=== PATIENT | female | born 1950 | race Caucasian/White ===

== ENCOUNTER 2019-07-24 09:00 | Outpatient (CLI) | payer MEDICARE, SELFPAY ==
--- NOTE | ~2019-07-24 | MMUS_ITS ---
EXAMINATION: MM diagnostic bruno LT w gentry, US breast LT limited HISTORY: Six-month follow-up for probably benign left breast mass TECHNIQUE: Craniocaudal, mediolateral, and mediolateral oblique 3-D tomosynthesis images of the left breast were performed and synthetic 2-D images were generated. Spot compression views of the left terry ast are also obtained. CAD analysis was submitted and interpreted. High resolution limited left breas t ultrasound was performed. COMPARISON: 01/12/2019, 12/19/2018, 12/13/2017, 12/08/2016 BREAST PARENCHYMAL COMPOSITION: There are scattered areas of fibroglandular density. FINDINGS: MAMMOGRAPHIC FINDINGS: There is a stable 5 mm round, obscured, equal density mass in the middle third of the breast at the 9 :00 location 4 cm from the nipple, consistent with a cyst. No associated calcification or architectur al distortion are identified. ULTRASOUND: Again seen is a mildly irregular area in the subareolar aspect of the breast without discrete mass, p osterior acoustic shadowing, or internal vascularity. This has a stable appearance when compared to p rior ultrasound and no mammographic correlate is IMPRESSION: 1. Probably benign findings in the subareolar aspect of the left breast. 2. Recommend 6 month follow-up left diagnostic mammogram and ultrasound. BI-RADS category 3, probably benign findings. Reviewed, dictated and finalized at location A. MING DEPARTMENT BLOCKER IMPRESSION: 1. Probably benign findings in the subareolar aspect of the left breast. 2. Recommend 6 month follow-up left diagnostic mammogram and ultrasound. BI-RADS category 3, probably benign findings.
== END 2019-07-24 09:01 | disposition home or self-care (01) ==
PROVIDERS: PCP Family Medicine; Visit Provider Family Medicine
DX: R92.8 Other abnormal and inconclusive findings on diagnostic imaging of breast (principal)
CPT/HCPCS: 76642; 77061; 77065; G0279

== ENCOUNTER 2020-01-22 09:05 | Outpatient (CLI) | payer MEDICARE, SELFPAY ==
--- NOTE | ~2020-01-22 | MMUS_ITS ---
EXAMINATION: MM diagnostic bruno LT w gentry, US breast LT limited HISTORY: Probably benign prior imaging findings in subareolar left breast TECHNIQUE: 3-D tomosynthesis images of the left breast were performed and synthetic 2-D images were g enerated. CAD analysis was submitted and interpreted. High resolution subareolar left breast ultrasou nd was performed. COMPARISON: 07/24/2019 diagnostic left digital mammogram and limited left breast ultrasound 01/12/2019 diagnostic bilateral digital mammogram and bilateral breast ultrasound 12/19/2018 bilateral digital screening mammogram 12/13/2017, 12/08/2016 bilateral digital screening mammogram examinations BREAST PARENCHYMAL COMPOSITION: There are scattered areas of fibroglandular density. FINDINGS: MAMMOGRAPHIC FINDINGS: No suspicious mass, architectural distortion, malignant calcification, skin thickening or retraction is evident. ULTRASOUND: There is an approximately 5.0 x 6.1 x 4.3 mm oval hypoechoic solid lesion with fatty hilus, likely a benign appearing left subareolar lymph node. There is stable irregular hypoechogenicity in the subare olar area without discrete mass or significant change compared to 07/24/2019. IMPRESSION: 1. Probably benign findings 2. Follow-up diagnostic left mammogram and left subareolar ultrasound examination in 6 months are rec ommended BI-RADS category 3, probably benign findings. Reviewed, dictated and finalized at location A. IMPRESSION: 1. Probably benign findings 2. Follow-up diagnostic left mammogram and left subareolar ultrasound examinati on in 6 months are recommended BI-RADS category 3, probably benign findings.
== END 2020-01-22 09:06 | disposition home or self-care (01) ==
PROVIDERS: PCP Family Medicine; Visit Provider Family Medicine
DX: R92.8 Other abnormal and inconclusive findings on diagnostic imaging of breast (principal)
CPT/HCPCS: 76642; 77061; 77065; G0279

== ENCOUNTER 2020-07-24 08:47 | Outpatient (CLI) | payer MEDICARE, SELFPAY ==
--- NOTE | ~2020-07-24 | MMUS_ITS ---
EXAMINATION: MM diagnostic bruno BI w gentry, US breast RT complete, US breast LT complete HISTORY: Follow-up breast mass TECHNIQUE: Additional 3-D tomosynthesis images of the breasts were performed and synthetic 2-D images were generated. CAD analysis was submitted and interpreted. High resolution bilateral complete breas t ultrasound was performed. COMPARISON: Comparison to multiple prior studies sequentially, with oldest reviewed study dated 12/13. BREAST PARENCHYMAL COMPOSITION: Breast composed of scattered areas of fibroglandular density. FINDINGS: MAMMOGRAPHIC FINDINGS: There is a 13 mm mass in the upper outer quadrant of the right breast, anterior third. There are smal ler nodules central aspect of the right breast measuring 2-3 mm, best seen on CC tomographic image 35 . There are scattered small 3-4 mm nodules in the central aspect of the left breast, CC tomographic i mage 37 and MLO tomographic image 38.. ULTRASOUND: Right breast ultrasound: At 5:00, 2 cm from the nipple is an irregular shaped hypoechoic mass measuri ng 7 mm with some angular margins. No significant posterior features or internal vascularity. At 11:0 0 near the nipple there is a 1.5 cm cyst responding to the dominant mass seen on mammography. Adjacen t to this area is a complex hypoechoic mass with angular margins and posterior shadowing with ill-def ined margins. Left breast ultrasound: At 1:00, 2 cm from the nipple, there is a 3 mm cyst. At 10:00, 2 cm from the nipple, there is a 3 mm cyst. In the subareolar location there is an irregular shaped hypoechoic mass measuring 5 mm with posterior shadowing. No internal vascularity. IMPRESSION: 1. Irregular shaped hypoechoic masses in the subareolar location of both breasts. 2. Bilateral ultrasound-guided breast biopsies recommended. BI-RADS category 4, suspicious findings. Reviewed, dictated and finalized at location A. NCE INTELLIGENCE ANALYST IMPRESSION: 1. Irregular shaped hypoechoic masses in the subareolar location of both breast s. 2. Bilateral ultrasound-guided breast biopsies recommended. BI-RADS category 4, suspicious findings. IMPRESSION: 1. Irregular shaped hypoechoic masses in the subareolar location of both breast s. 2. Bilateral ultrasound-guided breast biopsies recommended. BI-RADS category 4, suspicious findings.
== END 2020-07-24 08:48 | disposition home or self-care (01) ==
PROVIDERS: PCP Family Medicine; Visit Provider Nurse Practitioner
DX: R92.8 Other abnormal and inconclusive findings on diagnostic imaging of breast (principal)
CPT/HCPCS: 76641; 77062; 77066; G0279

== ENCOUNTER 2020-08-01 09:07 | Outpatient (CLI) | payer MEDICARE, SELFPAY ==
[2020-08-01 09:21] LABS: Hematocrit 38.2 % (35.0-42.0); Hemoglobin 12.8 g/dL (11.7-13.8); Mean Corpuscular HGB Conc 33.5 g/dL (32.0-36.0); Mean Corpuscular Hemoglobin 31.4 pg (27.0-31.0); Mean Corpuscular Volume 93.9 fL (78.0-102.0); Mean Platelet Volume 9.8 fl (9.2-11.8); Platelet Count Result 236 K/mm3 (150-420); Red Blood Count 4.07 M/mm3 (4.20-5.40); Red Cell Distribution Width 11.9 % (11.6-14.4); White Blood Count 3.7 K/mm3 (4.8-10.8)
[2020-08-01 10:10] LABS: Band Neutrophils Percent 0 % (0-6); Basophils Percent Manual 0 % (0-1); Eosinophils Absolute Manual 0.18 K/mm3 (0.02-0.5); Eosinophils Percent Manual 5 % (1-6); Lymphocytes Absolute Manual 1.88 K/mm3 (1.1-4.5); Lymphocytes Percent Manual 51 % (18-44); Monocytes Absolute Manual 0.25 K/mm3 (0.1-0.90); Monocytes Percent Manual 7 % (3-9); Neutrophils Absolute Manual 1.36 K/mm3 (1.7-7.2); Neutrophils Percent Manual 37 % (46-73); Platelet Estimate Adequate (Adequate); Total Cells Counted 100
[2020-08-01 10:52] LABS: Alanine Aminotransferase 36 U/L (14-59); Albumin Level 4.1 g/dL (3.4-5.0); Alkaline Phosphatase 58 U/L (46-116); Anion Gap 7 mmol/L (8-16); Aspartate Amino Transferase 15 U/L (15-37); Bilirubin,Total 0.4 mg/dL (0.00-1.00); Blood Urea Nitrogen 19 mg/dL (7-18); Calcium 8.7 mg/dL (8.5-10.1); Carbon Dioxide 28 mmol/L (21-32); Chloride 105 mmol/L (98-108); Cholesterol 214 mg/dL (0-200); Estimated Glomerular Filt Rate > 60; Glucose 95 mg/dL (70-99); HDL Direct 58 mg/dL (40-60); LDL Cholesterol Calculated 137 mg/dL (<130); Osmolality Calculated 292 mOsm/kg (285-295); Potassium 4.3 mmol/L (3.5-5.1); Sodium 140 mmol/L (136-145); Total Protein 7.2 g/dL (6.4-8.2); Triglycerides 95 mg/dL (0-150); Vitamin B12 335 pg/mL (193-986)
[2020-08-05 12:57] LABS: Vitamin D 25 Hydroxy 31 ng/mL (30-100)
== END 2020-08-01 09:08 | disposition home or self-care (01) ==
LOC: CHSLAB 09:10
PROVIDERS: PCP Family Medicine; Visit Provider Nurse Practitioner
DX: R53.83 Other fatigue (principal); E53.8 Deficiency of other specified B group vitamins; E55.9 Vitamin D deficiency, unspecified; Z13.6 Encounter for screening for cardiovascular disorders
CPT/HCPCS: 36415; 80053; 80061; 82306; 82607; 84443; 85025

== ENCOUNTER 2020-08-06 13:00 | Outpatient (CLI) | payer MEDICARE, SELFPAY ==
--- NOTE | ~2020-08-06 | MMUS_ITS ---
CORRECTED REPORT ORDER DESCRIPTION CHANGE DIANAG 08/20/20 MM post biopsy diagnostic LT, US breast biopsy RT w image, US breast bx add lesion LT, MM post biopsy diagnostic RT INDICATION: Bilateral breast masses seen on prior examination. Biopsy recommended to exclude malignancy. TECHNIQUE AND FINDINGS: The risks and potential benefits of the procedure were discussed with the patient, and written informed consent was obtained. After sterile preparation of the breasts, 1% lidocaine was utilized for local anesthesia. 1% lidocaine with epinephrine was used for deep anesthesia. Bilateral subareolar masses are visualized by ultrasound prior to biopsy. A 10G vacuum-assisted biopsy gun needle was used for both breast masses using a superior approach utilizing sonographic guidance. A total of three tissue core samples were obtained through each lesion. An Inrad tissue marker clip was then placed at each biopsy site. Hemostasis was achieved. The patient tolerated procedure well and there was no evidence of immediate complication. The patient was given verbal instructions partly is from the department. Bilateral breast mammograms to document tissue marker clip placement. The tissue samples were submitted to surgical pathology for histologic analysis. IMPRESSION: 1. Successful ultrasound-guided vacuum-assisted biopsies of bilateral breast masses with tissue marker placement. Please refer to pathology report for histologic analysis. Reviewed, dictated and finalized at location A. ORATE COUNSELOR MTDD IMPRESSION: 1. Successful ultrasound-guided vacuum-assisted biopsies of bilateral breast m asses with tissue marker placement. Please refer to pathology report for histol ogic analysis. IMPRESSION: 1. Successful ultrasound-guided vacuum-assisted biopsies of bilateral breast m asses with tissue marker placement. Please refer to pathology report for histol ogic analysis. IMPRESSION: 1. Successful ultrasound-guided vacuum-assisted biopsies of bilateral breast m asses with tissue marker placement. Please refer to pathology report for histol ogic analysis.
--- NOTE | ~2020-08-06 | MM_ITS ---
MM post biopsy diagnostic LT, US breast biopsy RT w image, US breast biopsy LT w image, MM post biopsy diagnostic RT INDICATION: Bilateral breast masses seen on prior examination. Biopsy recommended to exclude malignancy. TECHNIQUE AND FINDINGS: The risks and potential benefits of the procedure were discussed with the patient, and written informed consent was obtained. After sterile preparation of the breasts, 1% lidocaine was utilized for local anesthesia. 1% lidocaine with epinephrine was used for deep anesthesia. Bilateral subareolar masses are visualized by ultrasound prior to biopsy. A 10G vacuum-assisted biopsy gun needle was used for both breast masses using a superior approach utilizing sonographic guidance. A total of three tissue core samples were obtained through each lesion. An Inrad tissue marker clip was then placed at each biopsy site. Hemostasis was achieved. The patient tolerated procedure well and there was no evidence of immediate complication. The patient was given verbal instructions partly is from the department. Bilateral breast mammograms to document tissue marker clip placement. The tissue samples were submitted to surgical pathology for histologic analysis. IMPRESSION: 1. Successful ultrasound-guided vacuum-assisted biopsies of bilateral breast masses with tissue marker placement. Please refer to pathology report for histologic analysis. GER ANALYTICAL SHERYL
== END 2020-08-06 13:01 | disposition home or self-care (01) ==
LOC: CHSIMG 13:02
PROVIDERS: PCP Family Medicine; Visit Provider Nurse Practitioner
DX: N60.12 Diffuse cystic mastopathy of left breast (principal); N60.11 Diffuse cystic mastopathy of right breast
CPT/HCPCS: 19083; 19084; 77065; 77066; 88305; A4648

== ENCOUNTER 2020-09-10 13:04 | Outpatient (CLI) | payer MEDICARE, SELFPAY ==
--- NOTE | ~2020-09-10 | DEXA_ITS ---
Bone Density Report Name: Kristen Reina Age: 69 Sex: Female Ethnicity: White Date of : 1950 Indication: postmenopausal; screening for osteoporosis; hysterectomy; Referring Provider: Brittayn Tamayo Study: Bone densitometry was performed. Exam Date: September 10, 2020 Accession number: [id number] Bone Density: Region BMD T-score Z-score Classification AP Spine(L1-L4) 0.834 -1.9 0.1 Osteopenia Femoral Neck (Left) 0.706 -1.3 0.4 Osteopenia Total Hip (Left) 0.871 -0.6 0.8 Normal Femoral Neck (Right) 0.750 -0.9 0.8 Normal Total Hip (Right) 0.904 -0.3 1.1 Normal Femoral Neck Mean 0.728 -1.1 0.6 Osteopenia Total Hip Mean 0.887 -0.4 1.0 Normal World Health Organization criteria for BMD impression classify patients as: Normal (T-score at or above -1.0), Osteopenia (T-score between -1.0 and -2.5), or Osteoporosis (T-score at or below -2.5). 10-year Fracture Risk(1): Major Osteoporotic Fracture 9.1% Hip Fracture 1.0% Reported Risk Factors: [place] (), Neck BMD=0.706, BMI=29.1 (1) FRAX(R) Version 3.08. Fracture probability calculated for an untreated patient. Fracture probability may be lower if the patient has received treatment. Clinical Information Provided by Patient: Has used the following medications: Vitamin D, Calcium Has the following medical conditions: Hysterectomy Patient maximum height was 66 Menopause Age: 56 No regular weight bearing exercise Drinks caffeinated beverages Onset of menses at age 14 Number of children 2 Impression: The patient has low bone mass, based on the Total Spine T-score. Discussion: BONE DENSITY IS LOW AT ONE OR MORE SKELETAL SITES. This patient's lowest T-score is low at one or more skeletal sites. It meets the World Health Organization's (WHO) criteria for ?low bone mass? (T-score between -1.0 and -2.5). The patient's 10-year risk of fracture as calculated by FRAX is less than the threshold where pharmacological therapy is recommended by the National Osteoporosis Foundation (NOF). However, all treatment decisions require clinical judgment and consideration of individual patient factors, including patient preferences, comorbidities, previous drug use, risk factors not captured in the FRAX model (e.g., frailty, falls, vitamin D deficiency, increased bone turnover, interval significant decline in bone density) and possible under or overestimation of fracture risk by FRAX. The patient should follow a healthful lifestyle (good nutrition with adequate calcium and vitamin D, and appropriate weight-bearing exercise). Follow-Up: Consider repeating this study in 2 to 3 years to reassess this patient's status, or sooner if there is some new clinical indication. Reported by: Dr. Sukhwinder Jefferson on 09/10/2020 1:52:00 PM.
== END 2020-09-10 13:05 | disposition home or self-care (01) ==
LOC: CHSIMG 13:05
PROVIDERS: PCP Family Medicine; Visit Provider Nurse Practitioner
DX: Z78.0 Asymptomatic menopausal state (principal)
CPT/HCPCS: 77080

== ENCOUNTER 2021-01-20 02:58 | Day surgery (SDC) | payer MEDICARE, SELFPAY ==
[2021-01-08 14:08] VITALS: BMI 28.3
[2021-01-20 06:24] VITALS: BP 140/81; PULSE 85; RESP 16; TEMP 36.7; O2SAT 100
[2021-01-20] MEDS: LACTATED RINGERS 1,000 ML 150 ML IV CONT (06:28)
--- NOTE | 2021-01-20 07:17 | WPDANESEPPF ---
Anes - Initial Pre Proc Eval Procedure: Operation Date: 01/20/21 07:30 Proposed Procedures p Esophagogastroduodenoscopy & Screening Colonoscopy - Osmar Arias MD Date/Time: 01/20/21 07:17 Surgeon: Osmar Arias MD Pre Op Diagnosis: hx of colon polyps, GERD Patient Data Age: 70 Gender: F Height: 1.68 m Weight: 76.8 kg Last Vital Signs Temp 98.1 F 01/20/21 06:24 Pulse 85 01/20/21 06:24 Resp 16 01/20/21 06:24 BP 140/81 01/20/21 06:24 Pulse Ox 100 01/20/21 06:24 Allergies Allergy/AdvReac Type Severity Reaction Status Date / Time azithromycin Allergy Unknown Nausea Verified 01/20/21 06:20 codeine Allergy Unknown Other Verified 01/20/21 06:20 Sulfa (Sulfonamide Allergy Unknown Rash Verified 01/20/21 06:20 Antibiotics) Home Medications Medication Instructions Recorded Confirmed Type lorazepam 0.5 mg tablet 0.5 mg PO DAILY PRN #20 tablet 08/24/19 01/20/21 Rx brimonidine [Alphagan P] 1 drp EACH EYE BID 01/08/21 01/20/21 History cholecalciferol (vitamin D3) 50 mcg PO DAILY 01/08/21 01/20/21 History famotidine 20 mg PO DAILY 01/08/21 01/20/21 History wturngalexnk-odsxjpqy-gicwve 1 tablet PO DAILY 01/08/21 01/20/21 History [Centrum Silver] fluoxetine 20 mg capsule 20 mg PO DAILY #90 cap 01/13/21 01/20/21 Rx losartan 50 mg tablet 50 mg PO DAILY #90 tablet 01/13/21 01/20/21 Rx Patient hx anesthesia problems: none Family hx anesthesia problems: none PMFSH Past Medical History Medical History (Updated 01/13/21 @ 11:40 by Ana Paula Juaerz NP) Anxiety Basal cell carcinoma of skin, site unspecified Colon polyp Familial stomach cancer GERD (gastroesophageal reflux disease) History of colon polyps Hyperlipidemia Panic disorder [episodic paroxysmal anxiety] Vitamin D deficiency Family History Family History Grandparent Acute myocardial infarction, Onset Age: 98 Family history of malignant neoplasm, Onset Age: 60 Father Family history of malignant neoplasm of urinary bladder, Onset Age: 86 Social History Social History Smoking status: Never smoker Second hand tobacco smoke exposure: No Alcohol intake: never Living arrangements: alone Spiritual care concerns: No Anes - Eval Final PreProcedure Day of Procedure 01/20/21 07:17 Patient weight: normal Heart: regular rate and rhythm Lungs: clear to auscultation Airway: Mallampati scale class II Neurological: alert and oriented Last oral intake: >/= 8 hours ASA classification: II Emergent: no Anesthetic plan: proceed Anesthesia type and monitoring: general GIVS and standard monitoring Informed Consent: The patient's anesthetic plan and its attendant risks and benefits were discussed with the patient/family/POA. Questions were solicited and answers provided to the satisfaction of the patient/family/POA.
--- NOTE | 2021-01-20 07:31 | PM.HPGS ---
History of Present Illness History of Present Illness Consent: Risks, benefits, and alternatives have been discussed and questions answered. Patient agrees to proceed with procedure. Chief complaint: hx of colon polyps, GERD Narrative: Kristen Reina is a 70 year old female here for egd and colonoscopy, GERD on famotidine, last EGD 2015 but also mother and maternal aunt with gastric cancer. Last colonoscopy with polyps ~ 5 years ago. Review of Systems Constitutional: Constitutional: Denies headache(s) and Denies weakness Eyes: Eyes: Denies blurry vision ENT: Reports Normal hearing present, Denies headache(s) and Denies neck pain Cardiovascular: Cardiovascular: Denies chest pain and Denies dyspnea Respiratory: Respiratory: Denies dyspnea Gastrointestinal: Gastrointestinal: Reports no additional gastrointestinal complaints Genitourinary: Genitourinary: Denies dysuria Musculoskeletal: Musculoskeletal: Denies neck pain Integumentary/Breasts: Skin/Breast: Denies dry skin Neurologic: Reports Normal hearing present, Denies headache(s) and Denies weakness Psychiatric: Psychiatric: Denies anxiety Endocrine: Endocrine: Denies change in body appearance Hematologic/Lymphatic: Hematologic/Lymphatic: Denies easy bleeding Allergic/Immunologic: Allergic/Immunologic: Denies urticaria PMFSH Past Medical History Medical History (Updated 01/13/21 @ 11:40 by Ana Paula Juarez NP) Anxiety Basal cell carcinoma of skin, site unspecified Colon polyp Familial stomach cancer GERD (gastroesophageal reflux disease) History of colon polyps Hyperlipidemia Panic disorder [episodic paroxysmal anxiety] Vitamin D deficiency Family History Family History Grandparent Acute myocardial infarction, Onset Age: 98 Family history of malignant neoplasm, Onset Age: 60 Father Family history of malignant neoplasm of urinary bladder, Onset Age: 86 Social History Social History Smoking status: Never smoker Second hand tobacco smoke exposure: No Alcohol intake: never Living arrangements: alone Spiritual care concerns: No Meds Home Medications and Allergies Home Medications Medication Instructions Recorded Confirmed Type lorazepam 0.5 mg tablet 0.5 mg PO DAILY PRN #20 tablet 08/24/19 01/20/21 Rx brimonidine [Alphagan P] 1 drp EACH EYE BID 01/08/21 01/20/21 History cholecalciferol (vitamin D3) 50 mcg PO DAILY 01/08/21 01/20/21 History famotidine 20 mg PO DAILY 01/08/21 01/20/21 History [id number]-uujtsyoe-caqmca 1 tablet PO DAILY 01/08/21 01/20/21 History [Centrum Silver] fluoxetine 20 mg capsule 20 mg PO DAILY #90 cap 01/13/21 01/20/21 Rx losartan 50 mg tablet 50 mg PO DAILY #90 tablet 01/13/21 01/20/21 Rx Allergies Allergy/AdvReac Type Severity Reaction Status Date / Time azithromycin Allergy Unknown Nausea Verified 01/20/21 06:20 codeine Allergy Unknown Other Verified 01/20/21 06:20 Sulfa (Sulfonamide Allergy Unknown Rash Verified 01/20/21 06:20 Antibiotics) Vital Signs Vital Signs - 24 hr 01/20/21 06:24 Temperature 98.1 F Pulse Rate 85 Respiratory Rate 16 Blood Pressure 140/81 Pulse Oximetry 100 Exam Const: General: comfortable and no acute distress HENMT: General nose exam: Normal nares present Eyes: General: appearance normal, both eyes and all related structures Neck: Neck: no JVD Resp: Auscultation: clear to auscultation bilaterally Cardio: Rate: regular rate Rhythm: regular rhythm GI: Inspection: non-distended GI Palp: Yes Soft to palpation Skin: General skin exam: normal color Neuro: General: gait normal Speech: normal speech Extrem: General: normal to inspection Psych: Mental Status: mental status grossly normal Assessment and Plan Assessment and plan (1) GERD (gastroesophageal reflux disease): Qualifiers: Esop
[2021-01-20 08:15] VITALS: BP 118/55; PULSE 62; RESP 14; O2SAT 99
[2021-01-20 08:25] VITALS: BP 129/71; PULSE 59; RESP 14; O2SAT 97
[2021-01-20 08:35] VITALS: BP 140/73; PULSE 58; RESP 22; O2SAT 99
== END 2021-01-20 08:52 | disposition home or self-care (01) ==
PROVIDERS: PCP Family Medicine; Visit Provider Internal Medicine Gastroenterology
PROC: 0DJ08ZZ Inspection of Upper Intestinal Tract, Via Natural or Artificial Opening Endoscopic (ICD-10-PCS; CPT 43235; principal; 2021-01-20 07:30)
DX: Z12.11 Encounter for screening for malignant neoplasm of colon (principal); D12.2 Benign neoplasm of ascending colon; D12.0 Benign neoplasm of cecum; K57.30 Diverticulosis of large intestine without perforation or abscess without bleeding; K25.3 Acute gastric ulcer without hemorrhage or perforation; K44.9 Diaphragmatic hernia without obstruction or gangrene; K21.00 Gastro-esophageal reflux disease with esophagitis, without bleeding; E78.5 Hyperlipidemia, unspecified; E55.9 Vitamin D deficiency, unspecified; F41.0 Panic disorder [episodic paroxysmal anxiety]
CPT/HCPCS: 45381; 45380; 43239; 87081; 88305; J2001; J2704; J7120

== ENCOUNTER 2021-02-03 08:07 | Outpatient (CLI) | payer MEDICARE, SELFPAY ==
[2021-02-03 08:17] LABS: Hematocrit 39.1 % (35.0-42.0); Hemoglobin 13.1 g/dL (11.7-13.8); Mean Corpuscular HGB Conc 33.5 g/dL (32.0-36.0); Mean Corpuscular Hemoglobin 31.3 pg (27.0-31.0); Mean Corpuscular Volume 93.5 fL (78.0-102.0); Mean Platelet Volume 9.9 fl (9.2-11.8); Platelet Count Result 222 K/mm3 (150-420); Red Blood Count 4.18 M/mm3 (4.20-5.40); Red Cell Distribution Width 11.9 % (11.6-14.4); White Blood Count 3.9 K/mm3 (4.8-10.8)
[2021-02-03 08:44] LABS: Alanine Aminotransferase 44 U/L (14-59); Albumin Level 4.1 g/dL (3.4-5.0); Alkaline Phosphatase 58 U/L (46-116); Anion Gap 7 mmol/L (8-16); Aspartate Amino Transferase 27 U/L (15-37); Band Neutrophils Percent 0 % (0-6); Bilirubin,Total 0.4 mg/dL (0.00-1.00); Blood Urea Nitrogen 19 mg/dL (7-18); Calcium 9.1 mg/dL (8.5-10.1); Carbon Dioxide 30 mmol/L (21-32); Chloride 106 mmol/L (98-108); Cholesterol 208 mg/dL (0-200); Eosinophils Absolute Manual 0.03 K/mm3 (0.02-0.5); Eosinophils Percent Manual 1 % (1-6); Estimated Glomerular Filt Rate 59; Glucose 94 mg/dL (70-99); HDL Direct 57 mg/dL (40-60); LDL Cholesterol Calculated 118 mg/dL (<130); Lymphocytes Absolute Manual 1.59 K/mm3 (1.1-4.5); Lymphocytes Percent Manual 41 % (18-44); Monocytes Absolute Manual 0.42 K/mm3 (0.1-0.90); Monocytes Percent Manual 11 % (3-9); Neutrophils Absolute Manual 1.83 K/mm3 (1.7-7.2); Neutrophils Percent Manual 47 % (46-73); Osmolality Calculated 298 mOsm/kg (285-295); Platelet Estimate Adequate (Adequate); Potassium 4.2 mmol/L (3.5-5.1); Sodium 143 mmol/L (136-145); Total Cells Counted 100; Total Protein 7.5 g/dL (6.4-8.2); Triglycerides 166 mg/dL (0-150)
== END 2021-02-03 08:08 | disposition home or self-care (01) ==
LOC: CHSLAB 08:09
PROVIDERS: PCP Family Medicine; Visit Provider Nurse Practitioner Family
DX: E78.5 Hyperlipidemia, unspecified (principal); I10 Essential (primary) hypertension
CPT/HCPCS: 36415; 80053; 80061; 85025

== ENCOUNTER 2021-02-16 09:08 | Outpatient (CLI) | payer MEDICARE, SELFPAY ==
--- NOTE | ~2021-02-16 | MMUS_ITS ---
MM diagnostic bruno BI w gentry, US breast BI complete 02/16/2021 09:42 (accession [id number]), 02/16/2021 10:14 (accession [id number]) Indication: Follow-up bilateral breast masses. Procedure: The breasts Comparison: Findings: Impression: 1: EXAMINATION: MM diagnostic bruno BI w gentry, US breast BI complete HISTORY: Follow-up breast asymmetries TECHNIQUE: Additional 3-D tomosynthesis images of the breasts were performed and synthetic 2-D images were generated. CAD analysis was submitted and interpreted. High resolution breasts breast ultrasoun d was performed. COMPARISON: Comparison to multiple prior studies sequentially, with oldest reviewed study dated 12/19. BREAST PARENCHYMAL COMPOSITION: Breast composed of scattered areas of fibroglandular density. FINDINGS: MAMMOGRAPHIC FINDINGS: Bilateral breast asymmetries are stable with associated tissue markers in the subareolar location of both breasts. No new masses, calcifications or architectural distortion are seen in either breast. ULTRASOUND: Right breast ultrasound: There are multiple cysts of the right breast, largest measuring 1 cm. At 5:0 0, 3 cm from the nipple, there is an oval hypoechoic mass measuring 5 mm with echogenic hilum, likely intramammary lymph node. At 5:00, 3 cm from the nipple there is a subtle hypoechoic mass, measuring 5 x 4 mm, likely a cluster of microcysts. At 8:00, 2 cm from the nipple, there is an oval hypoechoic mass measuring 3 mm, likely a complicated cyst. In the subareolar location of the right breast there is an irregular hypoechoic mass measuring 8 mm with posterior shadowing, unchanged from prior examina tion. This corresponds to the area of previous biopsy. Left breast ultrasound: At 2:00, 2 cm from the nipple, there is a small 4 mm intramammary lymph node. At 10:00, 2 cm from the nipple, there is an oval hypoechoic mass measuring 3 mm, likely a complicate d cyst. In the subareolar location of the left breast there is a 5 mm hypoechoic mass with echogenic hilum without significant posterior features IMPRESSION: 1. Probable benign bilateral breast masses. 2. Recommend 6 month follow-up follow-up diagnostic bilateral mammogram and ultrasound BI-RADS category 3, probably benign findings. Reviewed, dictated and finalized at location A. Impression: 1: EXAMINATION: MM diagnostic bruno BI w gentry, US breast BI complete HISTORY: Follow-up breast asymmetries TECHNIQUE: Additional 3-D tomosynthesis images of the breasts were performed an d synthetic 2-D images were generated. CAD analysis was submitted and interpret ed. High resolution breasts breast ultrasound was performed. COMPARISON: Comparison to multiple prior studies sequentially, with oldest [facility] study dated 12/19/2018. BREAST PARENCHYMAL COMPOSITION: Breast composed of scattered areas of fibroglan dular density. FINDINGS: MAMMOGRAPHIC FINDINGS: Bilateral breast asymmetries are stable with associated tissue markers in the s ubareolar location of both breasts. No new masses, calcifications or architectu ral distortion are seen in either breast. ULTRASOUND: Right breast ultrasound: There are multiple cysts of the right breast, largest measuring 1 cm. At 5:00, 3 cm from the nipple, there is an oval hypoechoic mass measuring 5 mm with echogenic hilum, likely intramammary lymph node. At 5:00, 3 cm from the nipple there is a subtle hypoechoic mass, measuring 5 x 4 mm, lik gallito a cluster of microcysts. At 8:00, 2 cm from the nipple, there is an oval hy poechoic mass measuring 3 mm, likely a complicated cyst. In the subareolar loca tion of the right breast there is an irregular hypoechoic mass measuring 8 mm w ith posteri
== END 2021-02-16 09:09 | disposition home or self-care (01) ==
LOC: CHSIMG 09:09
PROVIDERS: PCP Family Medicine; Visit Provider Nurse Practitioner Family
DX: R92.8 Other abnormal and inconclusive findings on diagnostic imaging of breast (principal)
CPT/HCPCS: 76641; 77062; 77066; G0279

== ENCOUNTER 2021-08-14 08:41 | Outpatient (CLI) | payer MEDICARE, SELFPAY ==
--- NOTE | ~2021-08-14 | MMUS_ITS ---
EXAMINATION: MM diagnostic bruno BI w gentry, US breast BI limited HISTORY: Follow-up bilateral breast masses TECHNIQUE: Additional 3-D tomosynthesis images of the breasts were performed and synthetic 2-D images were generated. CAD analysis was submitted and interpreted. High resolution limited bilateral breast ultrasound was performed. COMPARISON: Comparison to multiple prior studies sequentially, with oldest reviewed study dated 02/2019. BREAST PARENCHYMAL COMPOSITION: Breast composed of scattered areas of fibroglandular density. FINDINGS: MAMMOGRAPHIC FINDINGS: The breasts are stable. No new masses, calcifications or architectural distortion in either breast. T here are tissue markers in both breasts from previous benign biopsies. ULTRASOUND: Limited right breast ultrasound: At 12:00, 1 cm from the nipple there is a 1.4 cm cyst. At 5:00, 3 cm from the nipple there is a cluster of microcysts measuring 5 mm greatest dimension. At 11:00, 1 cm f rom the nipple there is an oval hypoechoic mass with echogenic hilum measuring 4 mm, likely benign in tramammary lymph node. No abnormality in the subareolar location. Limited left breast ultrasound: At 1:00, 2 cm from the nipple, there is a hypoechoic mass measuring 5 mm with areas of focal internal echogenicity, possibly tissue marker clip from previous benign biops y. No other masses are identified in the left breast. IMPRESSION: 1. Probable benign bilateral breast findings. 2. Given one year of interval stability, recommend 12 month followup bilateral mammogram and limited bilateral breast ultrasound. BI-RADS category 3, probably benign findings. Reviewed, dictated and finalized at location A. [employer] IMPRESSION: 1. Probable benign bilateral breast findings. 2. Given one year of interval stability, recommend 12 month followup bilateral mammogram and limited bilateral breast ultrasound. BI-RADS category 3, probably benign findings.
== END 2021-08-14 08:42 | disposition home or self-care (01) ==
LOC: CHSIMG 08:43
PROVIDERS: PCP Family Medicine; Visit Provider Nurse Practitioner Family
DX: R92.8 Other abnormal and inconclusive findings on diagnostic imaging of breast (principal)
CPT/HCPCS: 76642; 77062; 77066; G0279

== ENCOUNTER 2021-08-31 00:59 | Day surgery (SDC) | payer MEDICARE, SELFPAY ==
[2021-08-24 09:32] VITALS: BMI 27.6
[2021-08-31 06:27] VITALS: BMI 28.0
[2021-08-31 06:29] VITALS: BP 174/87; PULSE 75; RESP 20; TEMP 36.6; O2SAT 100
[2021-08-31] MEDS: LACTATED RINGERS 1,000 ML 150 ML IV CONT (06:32)
--- NOTE | 2021-08-31 07:19 | PM.HPGS ---
History of Present Illness History of Present Illness Consent: Risks, benefits, and alternatives have been discussed and questions answered. Patient agrees to proceed with procedure. Chief complaint: gastric ulcer, esophagitis Narrative: Kristen Reina is a 70 year old female with gastric ulcer 01/2021, here to assess healing Review of Systems Constitutional: Constitutional: Denies headache(s) and Denies weakness Eyes: Eyes: Denies blurry vision ENT: Reports Normal hearing present, Denies headache(s) and Denies neck pain Cardiovascular: Cardiovascular: Denies chest pain and Denies dyspnea Respiratory: Respiratory: Denies dyspnea Gastrointestinal: Gastrointestinal: Reports no additional gastrointestinal complaints Genitourinary: Genitourinary: Denies dysuria Musculoskeletal: Musculoskeletal: Denies neck pain Integumentary/Breasts: Skin/Breast: Denies dry skin Neurologic: Reports Normal hearing present, Denies headache(s) and Denies weakness Psychiatric: Psychiatric: Denies anxiety Endocrine: Endocrine: Denies change in body appearance Hematologic/Lymphatic: Hematologic/Lymphatic: Denies easy bleeding Allergic/Immunologic: Allergic/Immunologic: Denies urticaria PMFSH Past Medical History Medical History (Updated 08/31/21 @ 07:19 by Osmar Arias MD) Anxiety Basal cell carcinoma of skin, site unspecified Colon polyp Familial stomach cancer Gastric ulcer GERD (gastroesophageal reflux disease) Hyperlipidemia Other abnormal and inconclusive findings on diagnostic imaging of breast Panic disorder [episodic paroxysmal anxiety] Vitamin D deficiency Family History Family History Grandparent Acute myocardial infarction, Onset Age: 98 Family history of malignant neoplasm, Onset Age: 60 Father Family history of malignant neoplasm of urinary bladder, Onset Age: 86 Social History Social History Smoking status: Never smoker Second hand tobacco smoke exposure: No Alcohol intake: never Substance use: never Substance use type: does not use Living arrangements: with family Spiritual care concerns: No Meds Home Medications and Allergies Home Medications Medication Instructions Recorded Confirmed Type brimonidine [Alphagan P] 1 drp EACH EYE BID 01/08/21 08/24/21 History cholecalciferol (vitamin D3) 50 mcg PO DAILY 01/08/21 08/24/21 History otzbfzhodnai-hvjjksta-kavphq 1 tablet PO DAILY 01/08/21 08/24/21 History [Centrum Silver] omeprazole 40 mg capsule,delayed See Rx Instructions .ROUTE 06/15/21 08/24/21 Rx release .COMPLEX #90 cap lorazepam 0.5 mg tablet 0.5 mg PO DAILY PRN #20 tablet 06/22/21 08/24/21 Rx losartan 50 mg tablet 50 mg PO DAILY #90 tablet 06/23/21 08/24/21 Rx Allergies Allergy/AdvReac Type Severity Reaction Status Date / Time azithromycin Allergy Unknown Nausea Verified 08/31/21 06:25 codeine Allergy Unknown Other Verified 08/31/21 06:25 Sulfa (Sulfonamide Allergy Unknown Rash Verified 08/31/21 06:25 Antibiotics) Vital Signs Vital Signs - 24 hr 08/31/21 06:29 Temperature 97.8 F Pulse Rate 75 Respiratory Rate 20 Blood Pressure 174/87 H Pulse Oximetry 100 Exam Const: General: comfortable and no acute distress HENMT: General nose exam: Normal nares present Eyes: General: appearance normal, both eyes and all related structures Neck: Neck: no JVD Resp: Auscultation: clear to auscultation bilaterally Cardio: Rate: regular rate Rhythm: regular rhythm GI: Inspection: non-distended GI Palp: Yes Soft to palpation Skin: General skin exam: normal color Neuro: General: gait normal Speech: normal speech Extrem: General: normal to inspection Psych: Mental Status: mental status grossly normal Assessment and Plan Assessment and plan (1) Gastric ulcer: Code(s): K25.9 - Gastric ul
--- NOTE | 2021-08-31 07:20 | WPDANESEPPF ---
Anes - Initial Pre Proc Eval Procedure: Operation Date: 08/31/21 07:30 Proposed Procedures p Esophagogastroduodenoscopy - Osmar Arias MD Date/Time: 08/31/21 07:20 Surgeon: Osmar Arias MD Pre Op Diagnosis: gastric ulcer, esophagitis Patient Data Age: 70 Gender: F Height: 1.68 m Weight: 78.8 kg Last Vital Signs Temp 97.8 F 08/31/21 06:29 Pulse 75 08/31/21 06:29 Resp 20 08/31/21 06:29 BP 174/87 H 08/31/21 06:29 Pulse Ox 100 08/31/21 06:29 Allergies Allergy/AdvReac Type Severity Reaction Status Date / Time azithromycin Allergy Unknown Nausea Verified 08/31/21 06:25 codeine Allergy Unknown Other Verified 08/31/21 06:25 Sulfa (Sulfonamide Allergy Unknown Rash Verified 08/31/21 06:25 Antibiotics) Home Medications Medication Instructions Recorded Confirmed Type brimonidine [Alphagan P] 1 drp EACH EYE BID 01/08/21 08/24/21 History cholecalciferol (vitamin D3) 50 mcg PO DAILY 01/08/21 08/24/21 History ryerrtarvvht-vnztsoqb-hkirvu 1 tablet PO DAILY 01/08/21 08/24/21 History [Centrum Silver] omeprazole 40 mg capsule,delayed See Rx Instructions .ROUTE 06/15/21 08/24/21 Rx release .COMPLEX #90 cap lorazepam 0.5 mg tablet 0.5 mg PO DAILY PRN #20 tablet 06/22/21 08/24/21 Rx losartan 50 mg tablet 50 mg PO DAILY #90 tablet 06/23/21 08/24/21 Rx Patient hx anesthesia problems: none Family hx anesthesia problems: none Results Review: All pre-operative results and documents have been reviewed as part of the pre-operative evaluation. [facility] Past Medical History Medical History (Updated 08/31/21 @ 07:19 by Osmar Arias MD) Anxiety Basal cell carcinoma of skin, site unspecified Colon polyp Familial stomach cancer Gastric ulcer GERD (gastroesophageal reflux disease) Hyperlipidemia Other abnormal and inconclusive findings on diagnostic imaging of breast Panic disorder [episodic paroxysmal anxiety] Vitamin D deficiency Family History Family History Grandparent Acute myocardial infarction, Onset Age: 98 Family history of malignant neoplasm, Onset Age: 60 Father Family history of malignant neoplasm of urinary bladder, Onset Age: 86 Social History Social History Smoking status: Never smoker Second hand tobacco smoke exposure: No Alcohol intake: never Substance use: never Substance use type: does not use Living arrangements: with family Spiritual care concerns: No Anes - Eval Final PreProcedure Day of Procedure 08/31/21 07:20 Patient weight: normal Heart: regular rate and rhythm Lungs: clear to auscultation Airway: Mallampati scale class II Neurological: alert and oriented Last oral intake: >/= 8 hours ASA classification: II Emergent: no Anesthetic plan: proceed Anesthesia type and monitoring: general GIVS and standard monitoring Results Review: All pre-operative results and documents have been reviewed as part of the pre-operative evaluation. Informed Consent: The patient's anesthetic plan and its attendant risks and benefits were discussed with the patient/family/POA. Questions were solicited and answers provided to the satisfaction of the patient/family/POA.
[2021-08-31 07:46] VITALS: BP 144/83; PULSE 71; RESP 17; O2SAT 98
[2021-08-31 07:56] VITALS: BP 142/84; PULSE 66; RESP 13; O2SAT 99
[2021-08-31 08:06] VITALS: BP 157/88; PULSE 66; RESP 18; O2SAT 100
== END 2021-08-31 08:14 | disposition home or self-care (01) ==
PROVIDERS: PCP Family Medicine; Visit Provider Internal Medicine Gastroenterology
PROC: 0DJ08ZZ Inspection of Upper Intestinal Tract, Via Natural or Artificial Opening Endoscopic (ICD-10-PCS; CPT 43235; principal; 2021-08-31 07:30)
DX: K25.9 Gastric ulcer, unspecified as acute or chronic, without hemorrhage or perforation (principal); K44.9 Diaphragmatic hernia without obstruction or gangrene; K21.9 Gastro-esophageal reflux disease without esophagitis; E55.9 Vitamin D deficiency, unspecified; Z86.16 Personal history of COVID-19; E78.5 Hyperlipidemia, unspecified; F41.0 Panic disorder [episodic paroxysmal anxiety]
CPT/HCPCS: 43235; J2001; J2704; J7120

== ENCOUNTER 2021-10-29 13:50 | Outpatient (RCR) | payer MEDICARE, SELFPAY ==
--- NOTE | 2021-10-29 15:02 | PTOPEVAL ---
Thank you for referring Kristen Reina to [facility].? The patient is scheduled to be seen for therapy? ____x/week for ___ weeks. Please review, sign, date and return this plan of care CHADD. I agree with and certify that the following plan of care is medically necessary. Referring Physician Date Admitting Provider: Attending Provider: Ana Paula Juarez NP Referring Provider: LAURA Outpatient Evaluation Start: 10/29/21 13:59 Freq: Status: Active Protocol: Document 10/29/21 14:05 [facility] (Rec: 10/29/21 14:43 [facility] [id number]) Therapy Assessment Status Assessment Status Assessment Status Evaluation Outpatient Past Medical History Neurological History Hx Neurological Disorders No Significant History Cardiovascular History Hx Hypertension Yes Respiratory History Hx Respiratory Disorders No Significant History Gastrointestinal History Hx Appendectomy Yes: 1966 Hx Gastroesophageal Reflux Disease Yes Hx Hemorrhoids Yes Hx Polyps Yes Genitourinary History Hx Other Genitourinary Disorders Yes: Mesh from a bladder lift 2013 Musculoskeletal History Hx Musculoskeletal Disorders No Significant History Hematological History Hx Anemia Yes Hx Blood Transfusions Yes Endocrine History Hx Endocrine Disorders No Significant History HEENT History Hx Glaucoma Yes Integumentary History Hx Skin Disorders No Significant History Psychosocial History Hx Anxiety Yes Pain History History of Any Previous or Ongoing No Significant History Instance of Pain Anesthesia History Hx Anesthesia Reactions No Significant History Evaluation Information Problem Diagnosis bilateral knee pain Onset 10/15/21 Additional Evaluation Detail LEFS = 30% functionally declined Subjective Information patient reports she is having Query Text:As Reported By Patient/ pain in both her knees. Family however, she reports the L knee is worse than the R knee. she reports going up and down steps she as to take one step at a time stopping on each step. she reports she has had pain on and off int he knees for years but has gotten by with wrapping the knee and using a topical biofreeze. she reports she also has difficulty with pulling weeds.
--- NOTE | 2021-12-15 13:34 | PTOPEVAL ---
Thank you for referring Kristen Reina to [facility].? The patient is scheduled to be seen for therapy? ____x/week for ___ weeks. Please review, sign, date and return this plan of care CHADD. I agree with and certify that the following plan of care is medically necessary. Referring Physician Date Admitting Provider: Attending Provider: Ana Paula Juarez NP Referring Provider: *PT Outpatient Evaluation Start: 10/29/21 13:59 Freq: Status: Active Protocol: Document 12/15/21 11:00 [facility] (Rec: 12/15/21 13:32 [facility] [id number]) Therapy Assessment Status Assessment Status Assessment Status Progress Outpatient Past Medical History Neurological History Hx Neurological Disorders No Significant History Cardiovascular History Hx Hypertension Yes Respiratory History Hx Respiratory Disorders No Significant History Gastrointestinal History Hx Appendectomy Yes: 1966 Hx Gastroesophageal Reflux Disease Yes Hx Hemorrhoids Yes Hx Polyps Yes Genitourinary History Hx Other Genitourinary Disorders Yes: Mesh from a bladder lift 2013 Musculoskeletal History Hx Musculoskeletal Disorders No Significant History Hematological History Hx Anemia Yes Hx Blood Transfusions Yes Endocrine History Hx Endocrine Disorders No Significant History HEENT History Hx Glaucoma Yes Integumentary History Hx Skin Disorders No Significant History Psychosocial History Hx Anxiety Yes Pain History History of Any Previous or Ongoing No Significant History Instance of Pain Anesthesia History Hx Anesthesia Reactions No Significant History Evaluation Information Problem Diagnosis bilateral knee pain Onset 10/15/21 Subjective Information patient reports she has been Query Text:As Reported By Patient/ away from therapy due to Family having other medical issues addressed, and she had covid. she reports she is healthier now and is ready to continue skilled PT. she continues to report having the most pain in the bilateral knees with stair ambulation. she reports she now has some R buttock pain. she reports she has had xrays of the knees and they are negative. Pain Assessment Timing of Pain Assessment Timing of Pain Assessment Assessment Pain Scale Pain Scale Used Numeric (1
--- NOTE | 2022-01-01 15:56 | PTOPEVAL ---
Thank you for referring Kristen Reina to [facility].? The patient is scheduled to be seen for therapy? ____x/week for ___ weeks. Please review, sign, date and return this plan of care CHADD. I agree with and certify that the following plan of care is medically necessary. Referring Physician Date Admitting Provider: Attending Provider: Ana Paula Juarez NP Referring Provider: LAURA Outpatient Evaluation Start: 10/29/21 13:59 Freq: Status: Active Protocol: Document 01/01/22 15:00 [facility] (Rec: 01/01/22 15:55 [facility] [id number]) Therapy Assessment Status Assessment Status Assessment Status Discharge Outpatient Past Medical History Neurological History Hx Neurological Disorders No Significant History Cardiovascular History Hx Hypertension Yes Respiratory History Hx Respiratory Disorders No Significant History Gastrointestinal History Hx Appendectomy Yes: 1966 Hx Gastroesophageal Reflux Disease Yes Hx Hemorrhoids Yes Hx Polyps Yes Genitourinary History Hx Other Genitourinary Disorders Yes: Mesh from a bladder lift 2013 Musculoskeletal History Hx Musculoskeletal Disorders No Significant History Hematological History Hx Anemia Yes Hx Blood Transfusions Yes Endocrine History Hx Endocrine Disorders No Significant History HEENT History Hx Glaucoma Yes Integumentary History Hx Skin Disorders No Significant History Psychosocial History Hx Anxiety Yes Pain History History of Any Previous or Ongoing No Significant History Instance of Pain Anesthesia History Hx Anesthesia Reactions No Significant History Evaluation Information Problem Diagnosis bilateral knee pain Onset 10/15/21 Additional Evaluation Detail LEFS = 17% functionally declined Subjective Information patient reports she feels Query Text:As Reported By Patient/ really good this date. she Family reports she has no pain in the knees. she reports she is performing her exercises daily at home. she reports no restrictions in activities at [place] or in the community. Pain Assessment Timing of Pain Assessment Timing of Pain Assessment Assessment Self Report Self Report Pain Level 0 Pain Score Pain Score 0: Self Report Lower Extremity Range of Motion General Lower Extremity Range of Motion Gross Lower Extremity Range of Motion 0-133 degrees arom R knee Comments mobility
== END 2022-01-01 17:04 | disposition home or self-care (01) ==
LOC: CHSPT 13:50
PROVIDERS: Visit Provider Nurse Practitioner Family
DX: M25.561 Pain in right knee (principal); M25.562 Pain in left knee
CPT/HCPCS: 97014; 97110; 97140; 97161; 97530; G0283

== ENCOUNTER 2021-10-29 15:04 | Outpatient (CLI) | payer MEDICARE, SELFPAY ==
--- NOTE | ~2021-10-29 | XR_ITS ---
EXAMINATION: XR knee LT 2V, XR knee RT 2V DATE: 10/29/2021 15:25 INDICATION: Right knee pain TECHNIQUE: 1. Anteroposterior and lateral views of the right knee were obtained. 2. Anteroposterior and lateral views of the left knee were obtained.. COMPARISON: None. FINDINGS: Bone alignment is normal at both knees. No fracture. Joint spaces appear normal. No joint effusions. Soft tissues are unremarkable. IMPRESSION: Negative bilateral knee radiographs. Reviewed, dictated and finalized at location B. IMPRESSION: Negative bilateral knee radiographs.
== END 2021-10-29 15:05 | disposition home or self-care (01) ==
LOC: CHSIMG 15:07
PROVIDERS: PCP Family Medicine; Visit Provider Nurse Practitioner Family
DX: M25.561 Pain in right knee (principal); M25.562 Pain in left knee
CPT/HCPCS: 73560

== ENCOUNTER 2021-11-04 13:11 | Outpatient (CLI) | payer MEDICARE, SELFPAY ==
--- NOTE | ~2021-11-04 | XR_ITS ---
XR sinus min 3V DATE: 11/04/2021 13:26 INDICATION: Pressure and congestion and frontal area. Left ear clogged. Right neck lump. TECHNIQUE: jose d Wayne, lateral views COMPARISON: None FINDINGS: The paranasal sinuses and mastoid air cells are normally developed and aerated. There is moderate ballooning of the sella turcica. Consider further evaluation with MR examination (c onsidering the shortage of IV contrast material). IMPRESSION: Negative paranasal sinuses Ballooning of the sella turcica; consider MRI evaluation to evaluate for possible sellar mass Reviewed, dictated and finalized at location A. IMPRESSION: Negative paranasal sinuses Ballooning of the sella turcica; consider MRI evaluation to evaluate for possib le sellar mass
== END 2021-11-04 13:12 | disposition home or self-care (01) ==
LOC: CHSIMG 13:13
PROVIDERS: PCP Family Medicine; Visit Provider Family Medicine
DX: R09.81 Nasal congestion (principal)
CPT/HCPCS: 70220

== ENCOUNTER 2021-11-14 09:16 | Outpatient (CLI) | payer MEDICARE, SELFPAY ==
--- NOTE | ~2021-11-14 | MR_ITS ---
EXAMINATION: MR brain/brain stem wo con DATE: 11/14/2021 11:24 CDT INDICATION: Congestion and pressure. Possible abnormality seen on recent sinus series. TECHNIQUE: Magnetic resonance imaging (MRI) of the brain and brainstem was performed without intraven ous contrast. Sequences included sagittal and axial T1-weighted SE, axial diffusion-weighted FS SE, a xial T2*-weighted GRE, axial T2-weighted FLAIR Propeller, and axial T2-weighted Propeller. Apparent d iffusion coefficient (ADC) maps were created. COMPARISON: X-rays sinuses dated 11/04/2021 FINDINGS: The brain volume and ventricular system are within normal limits. The brain parenchymal si gnal intensity pattern and kumar/white matter is normal and there is no evidence of hemorrhage, space occupying masses or infarctions. Mild T2/FLAIR weighted signal hyperintensities, within normal limits for age. The flow signal voids of the major arterial structures about the [place] and within the brenda r dural venous sinuses appear grossly unremarkable and patent. The seventh and eighth cranial nerve complexes are normal. The mid sagittal image demonstrates a normal craniovertebral junction and jens us callosum. The paranasal sinuses are grossly unremarkable. IMPRESSION: 1: Unremarkable MRI of the brain. Reviewed, dictated and finalized at location A.
[2021-11-14 09:27] LABS: Basophils Absolute Auto 0.03 K/mm3 (0.00-0.10); Basophils Percent Auto 0.7 % (0.0-1.0); Eosinophils Absolute Auto 0.07 K/mm3 (0.02-0.50); Eosinophils Percent Auto 1.6 % (1.0-6.0); Hematocrit 38.4 % (35.0-42.0); Hemoglobin 12.9 g/dL (11.7-13.8); Immature Granulocyte Absolute 0.02 K/mm3 (0.00-0.00); Immature Granulocyte Percent A 0.5 % (0.0-0.0); Lymphocytes Absolute Auto 1.77 K/mm3 (1.10-4.50); Lymphocytes Percent Auto 39.9 % (18.0-42.0); Mean Corpuscular HGB Conc 33.6 g/dL (32.0-36.0); Mean Corpuscular Hemoglobin 31.2 pg (27.0-31.0); Mean Corpuscular Volume 92.8 fL (78.0-102.0); Mean Platelet Volume 9.4 fl (9.2-11.8); Neutrophils Absolute Auto 2.2 K/mm3 (1.7-7.2); Neutrophils Percent Auto 48.3 % (50.0-70.0); Platelet Count Result 282 K/mm3 (150-420); Red Blood Count 4.14 M/mm3 (4.20-5.40); Red Cell Distribution Width 11.6 % (11.6-14.4); White Blood Count 4.4 K/mm3 (4.8-10.8)
[2021-11-14 09:52] LABS: Alanine Aminotransferase 30 U/L (14-59); Albumin Level 4.1 g/dL (3.4-5.0); Alkaline Phosphatase 78 U/L (46-116); Anion Gap 4 mmol/L (8-16); Aspartate Amino Transferase 22 U/L (15-37); Bilirubin,Total 0.4 mg/dL (0.00-1.00); Blood Urea Nitrogen 15 mg/dL (7-18); Calcium 9.2 mg/dL (8.5-10.1); Carbon Dioxide 29 mmol/L (21-32); Chloride 104 mmol/L (98-108); Cholesterol 188 mg/dL (0-200); Estimated Glomerular Filt Rate > 60; Glucose 101 mg/dL (70-99); HDL Direct 59 mg/dL (40-60); LDL Cholesterol Calculated 110 mg/dL (<130); Osmolality Calculated 284 mOsm/kg (285-295); Sodium 137 mmol/L (136-145); Thyroid Stimulating Hormone 1.78 uIU/mL (0.36-3.74); Total Protein 7.8 g/dL (6.4-8.2); Triglycerides 95 mg/dL (0-150)
== END 2021-11-14 09:17 | disposition home or self-care (01) ==
PROVIDERS: PCP Family Medicine; Visit Provider Nurse Practitioner Family
DX: R00.2 Palpitations (principal); I10 Essential (primary) hypertension; E78.5 Hyperlipidemia, unspecified; R93.0 Abnormal findings on diagnostic imaging of skull and head, not elsewhere classified
CPT/HCPCS: 36415; 70551; 80053; 80061; 84443; 85025

== ENCOUNTER 2022-04-21 07:48 | Outpatient (CLI) | payer MEDICARE, SELFPAY ==
[2022-04-21 07:59] LABS: Basophils Absolute Auto 0.02 K/mm3 (0.00-0.10); Basophils Percent Auto 0.5 % (0.0-1.0); Eosinophils Absolute Auto 0.05 K/mm3 (0.02-0.50); Eosinophils Percent Auto 1.2 % (1.0-6.0); Hematocrit 36.9 % (35.0-42.0); Hemoglobin 12.5 g/dL (11.7-13.8); Immature Granulocyte Absolute 0.01 K/mm3 (0.00-0.00); Immature Granulocyte Percent A 0.2 % (0.0-0.0); Lymphocytes Absolute Auto 1.69 K/mm3 (1.10-4.50); Lymphocytes Percent Auto 40.9 % (18.0-42.0); Mean Corpuscular HGB Conc 33.9 g/dL (32.0-36.0); Mean Corpuscular Hemoglobin 31.7 pg (27.0-31.0); Mean Corpuscular Volume 93.7 fL (78.0-102.0); Mean Platelet Volume 9.8 fl (9.2-11.8); Monocytes Absolute Auto 0.43 K/mm3 (0.10-0.90); Monocytes Percent Auto 10.4 % (2.0-11.0); Neutrophils Absolute Auto 1.9 K/mm3 (1.7-7.2); Neutrophils Percent Auto 46.8 % (50.0-70.0); Platelet Count Result 226 K/mm3 (150-420); Red Blood Count 3.94 M/mm3 (4.20-5.40); Red Cell Distribution Width 11.9 % (11.6-14.4); White Blood Count 4.1 K/mm3 (4.8-10.8)
[2022-04-21 09:16] LABS: Alanine Aminotransferase 28 U/L (14-59); Albumin Level 4.1 g/dL (3.4-5.0); Alkaline Phosphatase 75 U/L (46-116); Anion Gap 9 mmol/L (8-16); Aspartate Amino Transferase 20 U/L (15-37); Bilirubin,Total 0.4 mg/dL (0.00-1.00); Blood Urea Nitrogen 20 mg/dL (7-18); Carbon Dioxide 29 mmol/L (21-32); Chloride 107 mmol/L (98-108); Cholesterol 226 mg/dL (0-200); Estimated Glomerular Filt Rate > 60; Glucose 94 mg/dL (70-99); HDL Direct 57 mg/dL (40-60); LDL Cholesterol Calculated 150 mg/dL (<130); Osmolality Calculated 302 mOsm/kg (285-295); Potassium 4.3 mmol/L (3.5-5.1); Sodium 145 mmol/L (136-145); Total Protein 7.2 g/dL (6.4-8.2); Triglycerides 94 mg/dL (0-150)
== END 2022-04-21 07:49 | disposition home or self-care (01) ==
LOC: CHSLAB 07:50
PROVIDERS: PCP Family Medicine; Visit Provider Nurse Practitioner Family
DX: E78.5 Hyperlipidemia, unspecified (principal); I10 Essential (primary) hypertension
CPT/HCPCS: 36415; 80053; 80061; 85025

== ENCOUNTER 2022-08-23 09:01 | Outpatient (CLI) | payer MEDICARE, SELFPAY ==
--- NOTE | ~2022-08-23 | MMUS_ITS ---
EXAMINATION: US breast BI limited, MM diagnostic bruno BI w gentry HISTORY: Follow-up bilateral breast masses TECHNIQUE: Additional 3-D tomosynthesis images of the breasts were performed and synthetic 2-D images were generated. CAD analysis was submitted and interpreted. High resolution limited bilateral breast ultrasound was performed. COMPARISON: Comparison to multiple prior studies sequentially, with oldest reviewed study dated Rikki rison to multiple prior studies sequentially, with oldest reviewed study dated 07/24/2020. . BREAST PARENCHYMAL COMPOSITION: BREAST PARENCHYMAL COMPOSITION: There are scattered areas of fibroglandular density. FINDINGS: MAMMOGRAPHIC FINDINGS: The breasts are stable. There is biopsy clips bilaterally from previous benign biopsies. No new joey s, calcifications or architectural distortion in either breast to suggest malignancy. ULTRASOUND: Complete bilateral US of all 4 quadrants of the breasts and retroareolar region was reviewed. Right breast: At 12:00, 1 cm from the nipple there is a 7 mm cyst. At 12:00, 1 cm from the nipple the re is a 7 mm cyst. At 5:00, 3 cm from the nipple there is an oval hypoechoic parallel oriented mass w ithout posterior features or internal vascularity with echogenic hilum measuring 6 x 5 x 3 mm, withou t significant change allowing for technique, most likely benign intramammary lymph node. At 11:00, 1 cm from the nipple there is a small 2 mm hypoechoic mass, too small to adequately characterize, likel y benign. Left breast: In the subareolar location there is an oval hypoechoic mass with mixed posterior attenua tion measuring 7 x 5 x 4 mm. This mass is not significantly changed in size compared with prior study allowing for technique. IMPRESSION: 1. Stable bilateral breast masses, likely benign. 2. Recommend 6 month follow-up limited bilateral breast ultrasound. BI-RADS category 3, probably benign findings. Reviewed, dictated and finalized at location A. IMPRESSION: 1. Stable bilateral breast masses, likely benign. 2. Recommend 6 month follow-up limited bilateral breast ultrasound. BI-RADS category 3, probably benign findings.
== END 2022-08-23 09:02 | disposition home or self-care (01) ==
LOC: CHSIMG 09:03
PROVIDERS: PCP Family Medicine; Visit Provider Nurse Practitioner Family
DX: R92.8 Other abnormal and inconclusive findings on diagnostic imaging of breast (principal)
CPT/HCPCS: 76642; 77062; 77066; G0279

== ENCOUNTER 2022-11-18 08:54 | Outpatient (CLI) | payer MEDICARE, SELFPAY ==
[2022-11-18 09:04] LABS: Hematocrit 38.6 % (35.0-42.0); Hemoglobin 12.7 g/dL (11.7-13.8); Mean Corpuscular HGB Conc 32.9 g/dL (32.0-36.0); Mean Corpuscular Hemoglobin 31.2 pg (27.0-31.0); Mean Corpuscular Volume 94.8 fL (78.0-102.0); Mean Platelet Volume 9.8 fl (9.2-11.8); Platelet Count Result 243 K/mm3 (150-420); Red Blood Count 4.07 M/mm3 (4.20-5.40); Red Cell Distribution Width 11.9 % (11.6-14.4); White Blood Count 3.9 K/mm3 (4.8-10.8)
[2022-11-18 09:22] LABS: Band Neutrophils Percent 1 % (0-6); Basophils Percent Manual 0 % (0-1); Eosinophils Absolute Manual 0.03 K/mm3 (0.02-0.5); Eosinophils Percent Manual 1 % (1-6); Lymphocytes Absolute Manual 2.02 K/mm3 (1.1-4.5); Lymphocytes Percent Manual 52 % (18-44); Monocytes Absolute Manual 0.31 K/mm3 (0.1-0.90); Monocytes Percent Manual 8 % (3-9); Neutrophils Absolute Manual 1.52 K/mm3 (1.7-7.2); Neutrophils Percent Manual 38 % (46-73); Platelet Estimate Adequate (Adequate); Total Cells Counted 100
[2022-11-18 10:28] LABS: Alanine Aminotransferase 24 U/L (14-59); Alkaline Phosphatase 78 U/L (46-116); Anion Gap 12 mmol/L (8-16); Aspartate Amino Transferase 19 U/L (15-37); Bilirubin,Total 0.4 mg/dL (0.00-1.00); Blood Urea Nitrogen 16 mg/dL (7-18); Calcium 9.1 mg/dL (8.5-10.1); Carbon Dioxide 26 mmol/L (21-32); Chloride 105 mmol/L (98-108); Cholesterol 223 mg/dL (0-200); Estimated Glomerular Filt Rate > 60; Glucose 97 mg/dL (70-99); HDL Direct 63 mg/dL (40-60); LDL Cholesterol Calculated 140 mg/dL (<130); Osmolality Calculated 297 mOsm/kg (285-295); Potassium 4.1 mmol/L (3.5-5.1); Sodium 143 mmol/L (136-145); Total Protein 7.1 g/dL (6.4-8.2); Triglycerides 100 mg/dL (0-150); Vitamin B12 253 pg/mL (193-986)
[2022-11-18 10:36] LABS: Thyroid Stimulating Hormone Reflex 2.18 u/IU/mL (0.36-3.74)
[2022-11-23 23:53] LABS: Vitamin D 25 Hydroxy 35 ng/mL (30-100)
== END 2022-11-18 08:55 | disposition home or self-care (01) ==
LOC: CHSLAB 08:55
PROVIDERS: PCP Family Medicine; Visit Provider Family Medicine
DX: E55.9 Vitamin D deficiency, unspecified (principal); E78.5 Hyperlipidemia, unspecified; E53.8 Deficiency of other specified B group vitamins; I10 Essential (primary) hypertension
CPT/HCPCS: 36415; 80053; 80061; 82306; 82607; 84443; 85025

== ENCOUNTER 2022-11-24 10:21 | Outpatient (CLI) | payer MEDICARE, SELFPAY ==
--- NOTE | ~2022-11-24 | DEXA_ITS ---
Bone Density Report Name: ROBERT OROZCO Age: 72 Sex: Female Ethnicity: White Date of : 1950 Indication: postmenopausal; screening for osteoporosis; height loss; hysterectomy; Referring Provider: PEYTON MURILLO Study: Bone densitometry was performed. Exam Date: November 24, 2022 Accession number: [id number] Bone Density: Region BMD T-score Z-score Classification AP Spine(L1-L4) 0.791 -2.3 -0.2 Osteopenia Femoral Neck (Left) 0.661 -1.7 0.2 Osteopenia Total Hip (Left) 0.856 -0.7 0.9 Normal Femoral Neck (Right) 0.686 -1.5 0.4 Osteopenia Total Hip (Right) 0.870 -0.6 1.0 Normal Femoral Neck Mean 0.674 -1.6 0.3 Osteopenia Total Hip Mean 0.863 -0.6 0.9 Normal World Health Organization criteria for BMD impression classify patients as: Normal (T-score at or above -1.0), Osteopenia (T-score between -1.0 and -2.5), or Osteoporosis (T-score at or below -2.5). 10-year Fracture Risk(1): Major Osteoporotic Fracture 10% Hip Fracture 1.7% Reported Risk Factors: [place] (), Neck BMD=0.661, BMI=28.2 (1) FRAX(R) Version 3.08. Fracture probability calculated for an untreated patient. Fracture probability may be lower if the patient has received treatment. Clinical Information Provided by Patient: Has used the following medications: Vitamin D, Calcium Has the following medical conditions: Hysterectomy Patient maximum height was 67 Menopause Age: 56 No regular weight bearing exercise Drinks caffeinated beverages Onset of menses at age 14 Number of children 2 Impression: The patient has low bone mass, based on the Total Spine T-score. Discussion: BONE DENSITY IS LOW AT ONE OR MORE SKELETAL SITES. This patient's lowest T-score is low at one or more skeletal sites. It meets the World Health Organization's (WHO) criteria for ?low bone mass? (T-score between -1.0 and -2.5). The patient's 10-year risk of fracture as calculated by FRAX is less than the threshold where pharmacological therapy is recommended by the National Osteoporosis Foundation (NOF). However, all treatment decisions require clinical judgment and consideration of individual patient factors, including patient preferences, comorbidities, previous drug use, risk factors not captured in the FRAX model (e.g., frailty, falls, vitamin D deficiency, increased bone turnover, interval significant decline in bone density) and possible under or overestimation of fracture risk by FRAX. The patient should follow a healthful lifestyle (good nutrition with adequate calcium and vitamin D, and appropriate weight-bearing exercise). Follow-Up: Consider repeating this study in 2 to 3 years to reassess this patient's status, or sooner if there is some new clinical indication. Reported by: Dr. Sukhwinder Jefferson on 11/24/2022 10:46:00 AM. Reviewed, dictated
== END 2022-11-24 10:22 | disposition home or self-care (01) ==
LOC: CHSIMG 10:22
PROVIDERS: PCP Family Medicine; Visit Provider Family Medicine
DX: Z78.0 Asymptomatic menopausal state (principal); M85.89 Other specified disorders of bone density and structure, multiple sites
CPT/HCPCS: 77080

== ENCOUNTER 2023-02-15 08:29 | Outpatient (CLI) | payer MEDICARE, SELFPAY ==
[2023-02-15 09:37] LABS: Alanine Aminotransferase 30 U/L (14-59); Albumin Level 3.7 g/dL (3.4-5.0); Alkaline Phosphatase 75 U/L (46-116); Anion Gap 9 mmol/L (8-16); Aspartate Amino Transferase 16 U/L (15-37); Bilirubin,Total 0.4 mg/dL (0.00-1.00); Blood Urea Nitrogen 15 mg/dL (7-18); Calcium 8.6 mg/dL (8.5-10.1); Carbon Dioxide 28 mmol/L (21-32); Chloride 107 mmol/L (98-108); Cholesterol 152 mg/dL (0-200); Estimated Glomerular Filt Rate > 60; Glucose 95 mg/dL (70-99); HDL Direct 56 mg/dL (40-60); LDL Cholesterol Calculated 78 mg/dL (<130); Osmolality Calculated 298 mOsm/kg (285-295); Potassium 4.3 mmol/L (3.5-5.1); Sodium 144 mmol/L (136-145); Total Protein 7.8 g/dL (6.4-8.2); Triglycerides 91 mg/dL (0-150)
== END 2023-02-15 08:30 | disposition home or self-care (01) ==
LOC: CHSLAB 08:30
PROVIDERS: PCP Family Medicine; Visit Provider Family Medicine
DX: E78.5 Hyperlipidemia, unspecified (principal); I10 Essential (primary) hypertension
CPT/HCPCS: 36415; 80053; 80061

== ENCOUNTER 2023-02-24 09:00 | Outpatient (CLI) | payer MEDICARE, SELFPAY ==
--- NOTE | ~2023-02-24 | MMUS_ITS ---
EXAMINATION: MM diagnostic bruno BI w gentry, US breast BI limited HISTORY: Follow-up bilateral breast asymmetries TECHNIQUE: Additional 3-D tomosynthesis images of the breasts were performed and synthetic 2-D images were generated. CAD analysis was submitted and interpreted. High resolution limited bilateral breast ultrasound was performed. COMPARISON: Comparison to multiple prior studies sequentially, with oldest reviewed study dated 07/24. BREAST PARENCHYMAL COMPOSITION: Breast composed of scattered areas of fibroglandular density FINDINGS: MAMMOGRAPHIC FINDINGS: There are stable bilateral periareolar asymmetries with associated tissue markers from previous bilat eral benign biopsies. No significant interval change in either breast. No new masses, calcifications or architectural distortion. ULTRASOUND: Limited right breast ultrasound: At 12:00, 1 cm from the nipple there is a 9 mm cyst. At 5:00, 3 cm f rom the nipple, there is a slightly irregular hypoechoic 6 x 4 x 3 mm mass without posterior features or internal vascularity. This is unchanged from prior study allowing for differences of technique. A t 11:00 near the nipple there is an oval hypoechoic 3 mm mass with subtle posterior shadowing without significant change from prior study allowing for differences of technique. Left breast ultrasound: At the 1:00 position in the subareolar location there is an irregular shaped hypoechoic mass measuring 6 x 5 x 5 mm with posterior shadowing and no internal vascularity. This lik gallito corresponds to the previous biopsy site and is unchanged from prior study allowing for difference s of technique. IMPRESSION: 1. Stable bilateral mammogram and ultrasound. Probable benign findings. 2. Given one year of interval stability, recommend 12 month followup diagnostic bilateral mammogram a nd Limited ultrasound BI-RADS category 3, probably benign findings. Reviewed, dictated and finalized at location A. IMPRESSION: 1. Stable bilateral mammogram and ultrasound. Probable benign findings. 2. Given one year of interval stability, recommend 12 month followup diagnostic bilateral mammogram and Limited ultrasound BI-RADS category 3, probably benign findings.
== END 2023-02-24 09:01 | disposition home or self-care (01) ==
LOC: CHSIMG 09:00
PROVIDERS: PCP Family Medicine; Visit Provider Nurse Practitioner Family
DX: N63.10 Unspecified lump in the right breast, unspecified quadrant (principal); R92.8 Other abnormal and inconclusive findings on diagnostic imaging of breast
CPT/HCPCS: 76642; 77062; 77066; G0279

== ENCOUNTER 2023-04-26 08:55 | Outpatient (CLI) | payer MEDICARE, SELFPAY ==
--- NOTE | ~2023-04-26 | XR_ITS ---
EXAMINATION: XR sinus min 3V DATE: 04/26/2023 09:27 INDICATION: Enlarged lymph nodes on the left. TECHNIQUE: 5 views of the paranasal sinuses were obtained. COMPARISON: Sinus radiographs 11/04/2021 FINDINGS: Bone alignment is normal. No fracture. The paranasal sinuses are clear. IMPRESSION: 1. Normal paranasal sinuses. Reviewed, dictated and finalized at location E. CASE MANAGEMENT
[2023-04-26 09:13] LABS: Hematocrit 37.9 % (35.0-42.0); Hemoglobin 12.6 g/dL (11.7-13.8); Mean Corpuscular HGB Conc 33.2 g/dL (32.0-36.0); Mean Corpuscular Hemoglobin 31.4 pg (27.0-31.0); Mean Corpuscular Volume 94.5 fL (78.0-102.0); Mean Platelet Volume 10.2 fl (9.2-11.8); Platelet Count Result 247 K/mm3 (150-420); Red Blood Count 4.01 M/mm3 (4.20-5.40); Red Cell Distribution Width 11.9 % (11.6-14.4); White Blood Count 3.7 K/mm3 (4.8-10.8)
[2023-04-26 09:31] LABS: Band Neutrophils Percent 0 % (0-6); Basophils Absolute Manual 0.03 K/mm3 (0-0.1); Basophils Percent Manual 1 % (0-1); Eosinophils Percent Manual 0 % (1-6); Lymphocytes Absolute Manual 1.48 K/mm3 (1.1-4.5); Lymphocytes Percent Manual 40 % (18-44); Monocytes Absolute Manual 0.51 K/mm3 (0.1-0.90); Monocytes Percent Manual 14 % (3-9); Neutrophils Absolute Manual 1.66 K/mm3 (1.7-7.2); Neutrophils Percent Manual 45 % (46-73); Platelet Estimate Adequate (Adequate); Total Cells Counted 100
[2023-04-26 09:51] LABS: Alanine Aminotransferase 41 U/L (14-59); Albumin Level 3.6 g/dL (3.4-5.0); Alkaline Phosphatase 67 U/L (46-116); Anion Gap 7 mmol/L (8-16); Aspartate Amino Transferase 21 U/L (15-37); Bilirubin,Total 0.5 mg/dL (0.00-1.00); Blood Urea Nitrogen 21 mg/dL (7-18); Calcium 8.4 mg/dL (8.5-10.1); Carbon Dioxide 29 mmol/L (21-32); Chloride 106 mmol/L (98-108); Cholesterol 147 mg/dL (0-200); Estimated Glomerular Filt Rate > 60; Glucose 96 mg/dL (70-99); HDL Direct 55 mg/dL (40-60); LDL Cholesterol Calculated 77 mg/dL (<130); Osmolality Calculated 297 mOsm/kg (285-295); Potassium 4.3 mmol/L (3.5-5.1); Sodium 142 mmol/L (136-145); Total Protein 6.9 g/dL (6.4-8.2); Triglycerides 75 mg/dL (0-150)
[2023-04-29 21:04] LABS: Vitamin D 1,25 (OH)2 Total 51 pg/mL (18-72); Vitamin D2 1,25 (OH)2 <8 pg/mL; Vitamin D3 1,25 (OH)2 51 pg/mL
== END 2023-04-26 08:56 | disposition home or self-care (01) ==
LOC: CHSLAB 08:57
PROVIDERS: PCP Family Medicine; Visit Provider Nurse Practitioner Family
DX: R59.9 Enlarged lymph nodes, unspecified (principal); E55.9 Vitamin D deficiency, unspecified; I10 Essential (primary) hypertension
CPT/HCPCS: 36415; 70220; 80053; 80061; 82652; 85025

== ENCOUNTER 2023-05-23 11:13 | Outpatient (CLI) | payer MEDICARE, SELFPAY ==
[2023-05-23 11:25] LABS: Appearance Urine Clear (Clear); Bilirubin Urine Negative (Negative); Blood Urine Trace-Intact (Negative); Color Urine Light Yellow (Yellow); Glucose Urine UA Negative (Negative); Ketones Urine Negative (Negative); Leukocyte Esterase Ur Trace LEU/UL (Negative); Nitrate Urine Negative (Negative); Protein Urine Negative (Negative); Specific Grav Ur 1.025 (1.010-1.020); Urobilinogen Urine 0.2 mg/dL (0.2-1.0)
[2023-05-23 11:36] LABS: Add Urine Microscopic? YES; Bacteria Urine Trace /hpf; Mucus Urine Moderate /lpf; RBC Urine 0-2 /hpf (0-2); Squamous Epithelial Cell Urine Rare /hpf (Few); WBC Urine 0-3 /hpf (0-3)
== END 2023-05-23 11:14 | disposition home or self-care (01) ==
LOC: CHSLAB 11:14
PROVIDERS: PCP Family Medicine; Visit Provider Family Medicine
DX: R31.29 Other microscopic hematuria (principal)
CPT/HCPCS: 81001

== ENCOUNTER 2023-06-24 10:50 | Outpatient (CLI) | payer MEDICARE, SELFPAY ==
[2023-06-24 11:02] LABS: Appearance Urine Clear (Clear); Bilirubin Urine Negative (Negative); Blood Urine 1+ (Negative); Color Urine Light Yellow (Yellow); Glucose Urine UA Negative (Negative); Ketones Urine Negative (Negative); Leukocyte Esterase Ur Trace LEU/UL (Negative); Nitrate Urine Negative (Negative); Protein Urine Negative (Negative); Specific Grav Ur >= 1.030 (1.010-1.020); Urobilinogen Urine 0.2 mg/dL (0.2-1.0)
[2023-06-24 11:30] LABS: Add Urine Microscopic? YES; Bacteria Urine 1+ /hpf; Mucus Urine Few /lpf; Squamous Epithelial Cell Urine Few /hpf (Few); WBC Urine 0-3 /hpf (0-3)
== END 2023-06-24 10:51 | disposition home or self-care (01) ==
LOC: CHSLAB 10:52
PROVIDERS: PCP Family Medicine; Visit Provider Family Medicine
DX: R31.29 Other microscopic hematuria (principal)
CPT/HCPCS: 81001

== ENCOUNTER 2023-07-04 12:34 | Outpatient (CLI) | payer MEDICARE, SELFPAY ==
[2023-07-04 12:57] LABS: Appearance Urine Clear (Clear); Bilirubin Urine Negative (Negative); Blood Urine 1+ (Negative); Color Urine Light Yellow (Yellow); Glucose Urine UA Negative (Negative); Ketones Urine Negative (Negative); Leukocyte Esterase Ur Negative (Negative); Nitrate Urine Negative (Negative); Protein Urine Negative (Negative); Specific Grav Ur 1.025 (1.010-1.020); Urobilinogen Urine 0.2 mg/dL (0.2-1.0)
[2023-07-04 13:01] LABS: Add Urine Microscopic? YES; Bacteria Urine Trace /hpf; Mucus Urine Few /lpf; Squamous Epithelial Cell Urine Few /hpf (Few); WBC Urine None seen /hpf (0-3)
== END 2023-07-04 12:35 | disposition home or self-care (01) ==
LOC: CHSLAB 12:36
PROVIDERS: PCP Family Medicine; Visit Provider Family Medicine
DX: N39.0 Urinary tract infection, site not specified (principal)
CPT/HCPCS: 81001; 87086; 87088

== ENCOUNTER 2023-08-29 07:50 | Outpatient (CLI) | payer MEDICARE, SELFPAY ==
--- NOTE | ~2023-08-29 | CT_ITS ---
EXAMINATION: CT abdomen pelvis wo/w con DATE: 08/29/2023 09:24 INDICATION: Microscopic hematuria. TECHNIQUE: Computed tomography (CT) of the abdomen and pelvis was performed without and with intraven ous contrast using a total of 130 mL Omnipaque-350 intravenous contrast with a double-bolus technique for simultaneous opacification of the renal parenchyma and renal collecting system. Automated exposu re control and iterative reconstruction technique were employed. The dose-length product was 1474.04 mGy-cm. COMPARISON: None FINDINGS: The visualized portions of the lung bases demonstrate mild atelectasis. No pleural effusion. The hear t size is normal. No pericardial effusion. There is a small sliding hiatal hernia. There are cysts in the liver measuring up to 8 mm. There are gallstones in the gallbladder, which is normal in size. Th e spleen, pancreas, and adrenal glands are normal. There are cysts in the kidneys measuring up to 3.9 cm on the right. There is a 10 mm mass of fat in left kidney, consistent with an angiomyolipoma. The re is a 3 mm stone in left kidney. The ureters are well opacified and are normal. The bladder is norm al. There is diverticulosis of the colon without evidence of diverticulitis. The appendix is not visu alized. There are no dilated loops of bowel. There are no pathologically enlarged lymph nodes. There is no free intraperitoneal fluid. IMPRESSION: 1. 3 mm stone in left kidney. 2. 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 Reviewed, dictated and finalized at location E.
[2023-08-29 08:44] LABS: Estimated Glomerular Filt Rate > 60
== END 2023-08-29 07:51 | disposition home or self-care (01) ==
LOC: CHSIMG 07:51
PROVIDERS: PCP Family Medicine; Visit Provider Urology
DX: R31.29 Other microscopic hematuria (principal); N20.0 Calculus of kidney; D17.71 Benign lipomatous neoplasm of kidney
CPT/HCPCS: 74178; Q9967

== ENCOUNTER 2023-12-15 07:18 | Day surgery (SDC) | payer MEDICARE, SELFPAY ==
[2023-12-05 09:16] VITALS: BMI 30.2
[2023-12-15 08:17] VITALS: BP 156/82; PULSE 69; RESP 15; TEMP 36.8; O2SAT 100
--- NOTE | 2023-12-15 08:21 | WPDHPUPDATE1 ---
History and Physical Update Update Date/Time: 12/15/23 08:21 History and Physical has been reviewed, including an updated exam of the patient. There are NO changes in the patient's condition. Risks, benefits, and alternatives have been discussed and questions answered. Patient agrees to proceed with procedure.
[2023-12-15] MEDS: LACTATED RINGERS 1,000 ML 150 ML IV CONT (08:25)
--- NOTE | 2023-12-15 08:51 | WPDANESEPPF ---
Anes - Initial Pre Proc Eval Procedure: Operation Date: 12/15/23 09:30 Proposed Procedures p Esophagogastroduodenoscopy - Juan Butt MD Date/Time: 12/15/23 08:51 Surgeon: Juan Butt MD Pre Op Diagnosis: Gerd w/o Esophagitis, Diaphragmatic Hernia Patient Data Age: 73 Gender: F Height: 1.63 m Weight: 79.5 kg Last Vital Signs Temp 36.8 C 12/15/23 08:17 Pulse 69 12/15/23 08:17 Resp 15 12/15/23 08:17 BP 156/82 H 12/15/23 08:17 Pulse Ox 100 12/15/23 08:17 O2 Del Method Room Air 12/15/23 08:17 Allergies Allergy/AdvReac Type Severity Reaction Status Date / Time azithromycin Allergy Unknown Nausea Verified 12/15/23 08:16 codeine Allergy Unknown Other Verified 12/15/23 08:16 Sulfa (Sulfonamide Allergy Unknown Rash Verified 12/15/23 08:16 Antibiotics) Home Medications Medication Instructions Recorded Confirmed Type cholecalciferol (vitamin D3) 50 50 mcg PO DAILY 01/08/21 12/15/23 History mcg (2,000 unit) capsule calcium-vitamin D2-soybean 500 1 tablet PO DAILY 09/02/22 12/15/23 History mg-100 unit-28 mg tablet loperamide 2 mg capsule 2 mg PO Q6H PRN Diarrhea 09/02/22 12/15/23 History fluticasone propionate 50 2 spray intranasal DAILY 11/15/22 12/15/23 History mcg/actuation nasal spray,suspension (Children's Flonase Allergy Relief) atorvastatin 10 mg tablet (Lipitor) 10 mg PO QHS #90 tabs 05/16/23 12/15/23 Rx dorzolamide 22.3 mg-timolol 6.8 1 drp EACH EYE BID 05/16/23 12/15/23 History mg/mL eye drops lorazepam 0.5 mg tablet 0.5 mg PO DAILY PRN anxiety #20 05/16/23 12/15/23 Rx tabs amlodipine 5 mg tablet 5 mg PO DAILY #100 tabs 09/13/23 12/15/23 Rx nystatin 100,000 unit/gram topical 1 applic topical WEEKLY PRN other 09/13/23 12/15/23 History ointment triamcinolone acetonide 0.1 % 1 applic topical WEEKLY PRN other 09/13/23 12/15/23 History topical ointment losartan 100 mg tablet 100 mg PO DAILY #90 tabs 11/21/23 12/15/23 Rx omeprazole 40 mg capsule,delayed 40 mg PO DAILY #30 caps 11/25/23 12/15/23 Rx release Patient hx anesthesia problems: none Family hx anesthesia problems: none Results Review: All pre-operative results and documents have been reviewed as part of the pre-operative evaluation. ON LICENSE OF [facility] Past Medical History Medical History Anxiety Asymptomatic gallstones (~08/2023) Basal cell carcinoma of skin, site unspecified Colon polyp Environmental allergies Family history of bladder cancer GERD (gastroesophageal reflux disease) Hx of gastric ulcer (~2020) Hyperlipidemia Irritable bowel syndrome with diarrhea Left renal stone (~08/2023) Leucopenia Masses of both breasts Osteopenia Renal cyst, right Sliding hiatal hernia (~08/2023) Vitamin D deficiency Surgical History Surgical History H/O bilateral breast biopsy H/O laser iridotomy Hx of appendectomy Hx of hysterectomy S/P removal of left ovary S/P sacrocolpopexy Family History Family History Grandparent Acute myocardial infarction, Onset Age: 98 Family history of malignant neoplasm, Onset Age: 60 Father Family history of malignant neoplasm of urinary bladder, Onset Age: 86 Mother Stomach cancer Other Rectal cancer Social History Social History Smoking status: Never smoker Second hand tobacco smoke exposure: No Alcohol intake: never Substance use: never Substance use type: does not use Lack of Transportation: No Lack of Food: Never True Current Housing: I Have Housing Concerned About Future Housing: No Difficulty Paying Gas/Electric Bills: No Difficulty Paying for Meds: No Currently Unemployed: No Education: High School Diploma/GED Difficulty w/ Childcare or Family Care: No Living arrangem
[2023-12-15 09:37] VITALS: BP 145/85; PULSE 66; RESP 16; O2SAT 100
--- NOTE | 2023-12-15 09:45 | WPDANESPN ---
Anes - Prog Note Post-Op Date/Time: 12/15/23 09:45 Cardiovascular status: normal Respiratory status: normal Mental status: baseline Post-Op hydration status: normal Vital Signs: Last Vital Signs Temp 36.8 C 12/15/23 08:17 Pulse 66 12/15/23 09:37 Resp 16 12/15/23 09:37 BP 145/85 H 12/15/23 09:37 Pulse Ox 100 12/15/23 09:37 O2 Del Method Room Air 12/15/23 09:37 Pain Score (VAS): 0/10 I/O: Intake & Output 12/14/23 12/15/23 12/15/23 23:59 07:59 15:59 Intake Total 200 Balance 200 Patient Feedback: Patient satisfied with anesthetic care.
[2023-12-15 09:47] VITALS: BP 137/76; PULSE 96; RESP 16; O2SAT 100
[2023-12-15 09:57] VITALS: BP 140/71; PULSE 64; RESP 20; O2SAT 100
== END 2023-12-15 10:02 | disposition home or self-care (01) ==
PROVIDERS: PCP Family Medicine; Visit Provider Internal Medicine Gastroenterology
PROC: 0DJ08ZZ Inspection of Upper Intestinal Tract, Via Natural or Artificial Opening Endoscopic (ICD-10-PCS; CPT 43235; principal; 2023-12-15 09:30)
DX: Q39.4 Esophageal web (principal); R10.13 Epigastric pain; K21.9 Gastro-esophageal reflux disease without esophagitis
CPT/HCPCS: 43450; 43239

== ENCOUNTER 2024-02-13 13:47 | Outpatient (RCR) | payer MEDICARE, SELFPAY ==
--- NOTE | 2024-02-13 15:00 | PTOPEVAL1 ---
Assessment and note entered by Nick Damon Evaluation Information Assessment Status Evaluation ICD-10 Condition Codes (PT) Pain in left hip M25.552 Onset 10/13/23 Subjective Information Pt. reports she developed left hip pain about 4 months ago. She states that the pain is not constant. She reports that she will have episodes of the hip going out and all pain is described along the left greater trochanter. She has not had any x-ray or MRI. She states that she has no pain at rest and can lay on the left side. She reports that nothing particular besides walking with increase her pain. She reports that she is continuing to complete all IADL's despite her pain. She states that she is fearful of falling due to the left hip giving out. She reports that her goal is to reduce hip pain with walking. Reported Pain Level Pain Score 0: Self Report Assessment PT Clinical Summary Pt. is a 73 year old female who enters the clinic with left hip pain. Special testing is consistent with interarticular hip pathology on this date. She presents with impaired gait, impaired hip abductor and extensor strength on the left, impaired hip mobility and pain. Continued skilled PT is indicated in order to improve these areas to allow for improve hip stability and improve comfort with IADL's. Plan of Care Interventions Electrical Stimulation,Gait Training,Hot Pack/Cold Pack,Manual Therapy,Neuro Re-education,Patient/ Caregiver Educati,Therapeutic Activities, Therapeutic Exercise PT Services Indicated Yes Treatment Frequency and 2x/week x 10 visits Duration These treatments will address the objective and functional deficits as defined above. The patient will be advanced safely and appropriately in order for the patient to progress towards his/her prior level of function. Additional exercises will be introduced and as well as a comprehensive home exercise program upon discharge, if needed, ?to ensure carryover of functional gains achieved in the clinic. This treatment plan has been reviewed and agreement upon by the patient.
--- NOTE | 2024-02-13 15:01 | OPREHPOC ---
Outpatient Therapy Plan of Care This is a Multidisciplinary Plan of Care that may contain components documented by all disciplines (PT, OT, and ST.) PT Problem 1 PT Problem #1 Knowledge Deficit PT Goal 1 Goal / Goal Update Pt. will be independent with a HEP addressing strength and flexibility. Target Visit 2 PT Problem 2 PT Problem #2 Pain PT Goal 1 Goal / Goal Update Pt. will deny any episode of left l.e. giving out with ambulation and no pain for 3 week duration. Target Visit 10 PT Problem 3 PT Problem #3 Impaired Strength PT Goal 1 Goal / Goal Update Pt. will present with 4+/5 left hip abduction strength and be able to maintain SLS without trendelenburg in order to improve hip stability and safety with walking. Target Visit 10 PT Problem 4 PT Problem #4 Impaired Range of Motion PT Goal 1 Goal / Goal Update Pt. will improve left hip ER ROM in prone to 60 degrees. Target Visit 10
== END 2024-05-13 23:59 | disposition home or self-care (01) ==
LOC: CHSPT 13:47
PROVIDERS: Visit Provider Family Medicine
DX: R29.898 Other symptoms and signs involving the musculoskeletal system (principal); M25.552 Pain in left hip
CPT/HCPCS: 97014; 97110; 97140; 97161; G0283

== ENCOUNTER 2024-02-15 09:03 | Outpatient (CLI) | payer MEDICARE, SELFPAY ==
[2024-02-15 09:15] LABS: Basophils Absolute Auto 0.02 K/mm3 (0.00-0.10); Basophils Percent Auto 0.5 % (0.0-1.0); Eosinophils Absolute Auto 0.04 K/mm3 (0.02-0.50); Immature Granulocyte Absolute 0.01 K/mm3 (0.00-0.00); Immature Granulocyte Percent A 0.3 % (0.0-0.0); Lymphocytes Absolute Auto 1.71 K/mm3 (1.10-4.50); Lymphocytes Percent Auto 42.9 % (18.0-42.0); Mean Corpuscular HGB Conc 33.3 g/dL (32-36); Mean Corpuscular Hemoglobin 31.3 pg (27.0-31.0); Mean Platelet Volume 9.4 fl (9.2-11.8); Neutrophils Absolute Auto 1.81 K/mm3 (1.70-7.20); Neutrophils Percent Auto 45.3 % (50.0-70.0); Platelet Count Result 235 K/mm3 (150-420); Red Blood Count 4.15 M/mm3 (4.20-5.40)
[2024-02-15 10:10] LABS: Hemoglobin A1C 5.4 % (<5.7)
[2024-02-15 10:13] LABS: Alanine Aminotransferase 33 U/L (14-59); Albumin Level 4.1 g/dL (3.4-5.0); Alkaline Phosphatase 78 U/L (46-116); Anion Gap 8 mmol/L (4-12); Aspartate Amino Transferase 21 U/L (15-37); Bilirubin,Total 0.4 mg/dL (0.00-1.00); Blood Urea Nitrogen 16 mg/dL (7-18); Carbon Dioxide 30 mmol/L (21-32); Chloride 105 mmol/L (98-108); Cholesterol 165 mg/dL (0-200); Estimated Glomerular Filt Rate > 60; Glucose 96 mg/dL (70-99); HDL Direct 67 mg/dL (40-60); LDL Cholesterol Calculated 86 mg/dL (<130); Osmolality Calculated 297 mOsm/kg (285-295); Potassium 4.4 mmol/L (3.5-5.1); Sodium 143 mmol/L (136-145); Total Protein 7.2 g/dL (6.4-8.2); Triglycerides 62 mg/dL (0-150); Vitamin B12 299 pg/mL (193-986)
[2024-02-15 10:16] LABS: Thyroid Stimulating Hormone Reflex 2.06 u/IU/mL (0.36-3.74)
[2024-02-17 11:59] LABS: Vitamin D 25 Hydroxy 28 ng/mL (30-100)
== END 2024-02-15 09:04 | disposition home or self-care (01) ==
LOC: CHSLAB 09:06
PROVIDERS: PCP Family Medicine; Visit Provider Family Medicine
DX: R73.9 Hyperglycemia, unspecified (principal); E55.9 Vitamin D deficiency, unspecified; E78.5 Hyperlipidemia, unspecified; E53.8 Deficiency of other specified B group vitamins; I10 Essential (primary) hypertension; K21.9 Gastro-esophageal reflux disease without esophagitis
CPT/HCPCS: 36415; 80053; 80061; 82306; 82607; 83036; 84443; 85025

== ENCOUNTER 2024-02-27 09:02 | Outpatient (CLI) | payer MEDICARE, SELFPAY ==
--- NOTE | ~2024-02-27 | MMUS_ITS ---
EXAMINATION: MM diagnostic bruno BI w gentry, US breast BI limited HISTORY: Follow-up bilateral breast asymmetries/masses TECHNIQUE: Additional 3-D tomosynthesis images of the breasts were performed and synthetic 2-D images were generated. CAD analysis was submitted and interpreted. High resolution limited bilateral breast ultrasound was performed. COMPARISON: Comparison to multiple prior studies sequentially, with oldest reviewed study dated 08/23. BREAST PARENCHYMAL COMPOSITION: Not dense: There are scattered areas of fibroglandular density. FINDINGS: MAMMOGRAPHIC FINDINGS: There is a biopsy clip in the right breast. There are coarse left breast calcifications. The left terry ast is stable without evidence for malignancy. There is an enlarging radiolucent mass in the upper ou ter quadrant of the right breast, anterior-mid depth. ULTRASOUND: Limited right breast ultrasound: At 12:00 near the nipple there is a 1 cm cyst which is slightly larg er than on prior examination. No additional masses are seen. No sonographic evidence for malignancy i n the right breast. Limited left breast ultrasound: In the subareolar location of the left breast there is an slightly ir regular shaped 5 mm hypoechoic mass with posterior shadowing. The morphology appears slightly differe nt than on prior examination and there is new posterior shadowing compared with prior examination. IMPRESSION: 1. Altered morphology of 5 mm left breast mass in the subareolar location by ultrasound. 2. Ultrasound-guided left breast biopsy recommended. BI-RADS category 4, suspicious findings. Reviewed, dictated and finalized at location B. IMPRESSION: 1. Altered morphology of 5 mm left breast mass in the subareolar location by ul trasound. 2. Ultrasound-guided left breast biopsy recommended. BI-RADS category 4, suspicious findings.
== END 2024-02-27 09:03 | disposition home or self-care (01) ==
LOC: CHSIMG 09:04
PROVIDERS: PCP Family Medicine; Visit Provider Family Medicine
DX: R92.8 Other abnormal and inconclusive findings on diagnostic imaging of breast (principal)
CPT/HCPCS: 76642; 77062; 77066; G0279

== ENCOUNTER 2024-03-22 07:37 | Outpatient (CLI) | payer MEDICARE, SELFPAY ==
--- NOTE | ~2024-03-22 | CT_ITS ---
CT of the Abdomen and Pelvis: Indication: Hematuria Technique: 2.5 mm axial scans were obtained through the abdomen and pelvis prior to and following in travenous administration of 130 cc of Omnipaque 350. Dose reduction technique was used on this scan b y utilizing automated exposure control and iterative reconstruction technique. The dose-length produc t (DLP) was 1561.70 mGy-cm. COMPARISON: 08/29/2023 Findings: Scans through the lung bases are unremarkable. Stable tiny hepatic cysts. Stable gallstones. The spleen, pancreas, and adrenal glands are within nor mal limits. 2 mm nonobstructing left renal stone present. Probable additional punctate nonobstructing left renal stone. No right renal stone evident. Large simple right renal cyst measures 8.8 cm in bebeto meter. Stable 9 mm indeterminate density lesion in the right kidney (series 7 image 57). Stable small left renal angiomyolipoma.. No evidence of aortic aneurysm. No lymphadenopathy. No bowel obstruction or bowel wall thickening. There is no evidence to suggest acute appendicitis. Images through the pelvis were performed. Urinary bladder unremarkable. No pelvic mass seen. No ascit es. Impression: No change from prior exam. Stable 9 mm indeterminate possible solid lesion the right kidney. Small re nal cell carcinoma is not excluded. 2 mm nonobstructing left renal stone. Cholelithiasis. Reviewed, dictated and finalized at [facility]. Impression: No change from prior exam. Stable 9 mm indeterminate possible solid lesion the right kidney. Small renal cell carcinoma is not excluded. 2 mm nonobstructing left renal stone. Cholelithiasis.
[2024-03-22 07:58] LABS: Estimated Glomerular Filt Rate > 60
== END 2024-03-22 07:38 | disposition home or self-care (01) ==
PROVIDERS: PCP Family Medicine; Visit Provider Urology
DX: R31.29 Other microscopic hematuria (principal); N20.0 Calculus of kidney; K80.20 Calculus of gallbladder without cholecystitis without obstruction
CPT/HCPCS: 74178; Q9967

== ENCOUNTER 2024-04-02 07:25 | Outpatient (CLI) | payer MEDICARE, SELFPAY ==
--- NOTE | ~2024-04-02 | US_ITS ---
EXAMINATION: US breast LT limited DATE: 04/02/2024 08:55 INDICATION: Unspecified lump in left breast. TECHNIQUE: Grayscale ultrasound images of the subareolar region of the left breast were obtained. COMPARISON: Ultrasound 02/27/2024, 07/24/19 FINDINGS: In the subareolar region of the left breast, there is a chronic 8 mm irregular hypoechoic m ass without posterior shadowing, stable from 07/24/2019. Biopsy on 08/06/2020 demonstrated benign fibroc ystic change. The altered morphology and the posterior shadowing described on 02/27/2024 are not visua lized. The biopsy was canceled. IMPRESSION: 1. BI-RADS category 2: Benign. Return to normal screening. Reviewed, dictated and finalized at location B.
== END 2024-04-02 07:26 | disposition home or self-care (01) ==
PROVIDERS: PCP Family Medicine; Visit Provider Nurse Practitioner Family
DX: N63.42 Unspecified lump in left breast, subareolar (principal)
CPT/HCPCS: 76642

== ENCOUNTER 2024-08-09 12:12 | Outpatient (CLI) | payer MEDICARE, SELFPAY ==
[2024-08-09 13:14] LABS: Alanine Aminotransferase 33 U/L (14-59); Albumin Level 4.1 g/dL (3.4-5.0); Alkaline Phosphatase 87 U/L (46-116); Anion Gap 10 mmol/L (4-12); Aspartate Amino Transferase 18 U/L (15-37); Bilirubin,Total 0.5 mg/dL (0.00-1.00); Blood Urea Nitrogen 18 mg/dL (7-18); Calcium 9.3 mg/dL (8.5-10.1); Carbon Dioxide 26 mmol/L (21-32); Chloride 107 mmol/L (98-108); Estimated Glomerular Filt Rate 53; Glucose 93 mg/dL (70-99); Osmolality Calculated 297 mOsm/kg (285-295); Potassium 4.3 mmol/L (3.5-5.1); Sodium 143 mmol/L (136-145); Total Protein 7.4 g/dL (6.4-8.2)
--- OUTSIDE RECORDS SUMMARY | 2024-08-09 13:34 | XMS_ITS ---
Author Organization [facility] Address [address] [place], [place] [id number] Care Team Providers Care Insurance Law Specialist Name Role Phone Ashley Chaomarianorobert Unavailable Unavaila RAFFI Triplett Unavailable [phone] REASON FOR VISIT *General care Encounters Encounter Location Date Provider Diagnosis [facility] [address] [place], [place] [id number] 04/14/2023 RAFFI TAYLOR Plan Of Treatment No Information Progress Notes * ERNESTO, NADAROB:[birth year] (73 yo F)Acc No.[id number]:04/14/2023 Patient: ROBERT PEREZ Provider: Gregg TAYLOR :1950 A ge:72 Y S ex:Female Date:04/14/2023 Address:[address], [place] Subjective: * Chief Complaints: * 1 . *General care. * Medical History: Objective: * Vitals: Assessment: Plan: * Treatment: * Billing Information: * Visit Code: * Procedure Codes: * Electronic signature of BRADLEY TAYLOR DPM on 08/09/2024 at 01:34 PM DRAPERY ROD ASSEMBLER Sign off status: Pending * Provider: Gregg TAYLOR Date: 1 06/14/2022 Generated for Mariana lockhart/Cherie/Tawana on: 0 08/09/2024 01:34 PM DRAPERY ROD ASSEMBLER
--- OUTSIDE RECORDS SUMMARY | 2024-08-09 13:34 | XMS_ITS | Clinical Summary ---
Author Organization [facility] Address [address] [place] [address] Care Team Providers Care Extracorporeal Circulation Specialist Name Role Phone Swati Chao MD Primary Care Provider Source Comments [facility],non-owned Affiliates and Associated Physician Practices is amultiple site organization consisting of ambulatory clinics and hospital sitesin [place], [place], [place] and [place]. This disclosure is being madepursuant to the Care Everywhere program and may not contain all information available regarding this patient. Last updated 18.[facility] Allergies No known active allergies Medications * Be aware that medications may not be up to date on this document. Alwaysverify current medications with the patient. Medication Sig Dispensed Refills Start Date End Date Status BRIMONIDINE 0.15%-DORZOLAMIDE 2% PF EYE DROPS (COMPOUNDED) Active LOPERAMIDE HCL PO Active losartan (Cozaar) 50 MG tablet Take 1 (one) tablet by mouth once daily 03/11/2023 Active ofloxacin (Floxin) 0.3 % otic solution INSTILL 5 DROPS INTO THE EAR(S) THREE TIMES A DAY FOR 7 DAYS AFFECTED EAR 07/23/2022 Active omeprazole (PriLOSEC) 40 MG capsule Take 1 (one) capsule by mouth once daily 08/21/2023 Active LORazepam (Ativan) 0.5 MG tablet Take 1 (one) tablet by mouth once daily as needed FOR ANXIETY 05/16/2023 Active dorzolamide-timolol (Cosopt) 2-0.5 % ophthalmic solution INSTILL 1 DROP INTO BOTH EYES TWICE A DAY DIRECTED 08/02/2023 Active atorvastatin (Lipitor) 10 MG tablet Take 1 (one) tablet by mouth at bedtime 08/11/2023 Active Multiple Vitamin (MULTI-VITAMIN PO) Active nystatin (Mycostatin) 319634 UNIT/GM ointmentIndications :Lichen sclerosus Use to vulvar skin with the Triamcinolone ointment 0.1% twice weekly. 30 g 1 09/06/2023 Active triamcinolone acetonide (Kenalog) 0.1 % ointmentIndications :Lichen sclerosus Use to vulvar skin with the nystatin ointment twice weekly 30 g 1 09/06/2023 Active vitamin D3 (Cholecalciferol) 10 MCG (400 UNIT) tablet Take by mouth once daily Active cyanocobalamin (Vitamin B-12) 500 MCG tablet Take 1 (one) tablet by mouth once daily Active vitamin D3 (Cholecalciferol) 25 MCG (1000 UNITS) tablet Take by mouth once daily Active clobetasol (Temovate) 0.05 % ointmentIndications :Lichen sclerosus,Fissure in skin APPLY to vulvar skin twice a day x 2 weeks & then daily x 2 weeks 30 g 1 07/06/2024 Active Active Problems Problem Noted Date Diagnosed Date GERD (gastroesophageal reflux disease) 4 09/06/2023 High blood pressure 09/06/2023 09/06/2023 High cholesterol 09/06/2023 09/06/2023 Encounters Date Type Department Care Team Description 07/06/2024 10:30 AM HOT DIPPER Office Visit [facility] - OBSTETRICS TEACHER [address] [place] [address] Carmen Shi, MALIK-DAY TRADER Lichen sclerosus (Primary Dx); Fissure in skin 07/06/2024 Travel 07/03/2024 Travel 06/26/2024 Travel from Last 3 Months Family History Medical History Relation Name Comments Cancer - Bladder Father None Known Maternal Grandfather None Known Maternal Grandmother Cancer - Stomach Mother None Known Paternal Grandfather None Known Paternal Grandmother Relation Name Status Comments Father Maternal Grandfather Maternal Grandmother Mother Paternal Grandfather Paternal Grandmother Social History Tobacco Use Types Packs/Day Years Used Date Smoking Tobacco: Never Passive Smoke Exposure: Never Smokeless Tobacco: Never Alcohol Use Standard Drinks/Week Comments Never 0 (1 standard drink = 0.6 oz pur e alcohol) PHQ-2 Answer Date Recorded Patient Health Questionnaire-2 Score 0 07/04/2024 Sex and Gender Information Value Date Recorded Sex Assigned at Female 08/30/2023 9:16 AM CDT Gender Identity Female 08/30/2023 9:16 AM CDT Sexual Orientation Straight 08/30/2023 9: 16 AM CDT Last Filed Vital Signs Vital Sign Reading Time Taken Comments Blood Pressure 126/72 07/06/2024 10:02 AM HOT DIPPER Pulse - - Temperature - - Respiratory Rate - - Oxygen Saturation - - Inhaled Oxygen Concentration - - Weight 77.5 kg (170 lb 12.8 oz) 025 10:02 AM HOT DIPPER Height 167.6 cm (5' 6 ) 07/06/2024 10:0 2 AM HOT DIPPER Body Mass Index 27.57 07/06/2024 10:02 AM HOT DIPPER Plan of Treatment Upcoming Encounters Date Type Department Care Team (Late st Contact Info) Description 10/31/2024 10:50 AM CDT Office Visit [facility] - OBSTETRICS TEACHER [address] [place] [address] Carmen Shi, SUPPORT ENGINEER-DAY TRADER [address] [address] Health Maintenance Due Date Last Done Comments BONE DENSITY TESTING 1950 COLOGUARD (AGES 45-75) - COLON CA SCREENING 1950 COLON MONITORING 1950 COLONOSCOPY - COLON CA SCREENING 1950 CT COLONOGRAPHY - COLON CA SCREENING 1950 Colorectal Cancer Screening 1950 FIT - COLON CA SCREENING 1950 FLEX SIG - COLON CA SCREENING 1950 MAMMOGRAM 1950 HEPATITIS C SCREENING 11/15/1969 DTAP/TDAP/TD VACCINES (1 - Tdap) 11/19/1970 PNEUMOCOCCAL VACCINE 50+ (1 of 1 - PCV) 11/19/2001 ZOSTER VACCINE (1 of 2) 11/19/2001 COVID-19 VACCINE ( season) 2024 05/17/2022, 05/11/2021, 08/15/2020, Additional history exists INFLUENZA VACCINE (#1) 2024 4, 04/14/2022, 03/08/2021, Additional history exists MEDICARE AWV CALENDAR YEAR 2024 Respiratory Syncytial Virus (RSV) Vaccine Pt: or over 60 yrs (1 - 1-dose 75+ series) 11/19/2026 DEPRESSION SCREENING Completed 07/06/2024, 09/06/19 HEPATITIS B VACCINE Aged Out No longe r eligible based on patient's age to complete this topic HIB VACCINE Aged Out No longer eligi ble based on patient's age to complete this topic HPV VACCINE Aged Out No longer eligi ble based on patient's age to complete this topic MENINGOCOCCAL (Group B) VACCINE Aged Out No longer eligible based on patient's age to complete this topic MENINGOCOCCAL VACCINE Aged Out No gregory fantasma eligible based on patient's age to complete this topic Care Teams Extracorporeal Circulation Specialist Relationship Specialty Start Date End Date Swati Chao MD [address] [place] [address] PCP - General Family Medicine 09/06/23
--- OUTSIDE RECORDS SUMMARY | 2024-08-09 13:34 | XMS_ITS ---
Author Organization [facility] Address [address] [place], [place] [address] Care Team Providers Care Networker Name Role Phone Swati Chao Unavailable Unavaila HEDY Her Unavailable [phone] Allergies Allergen (clinical drug ingredient) Drug/Non Drug Allergy documented on EMR Reaction Allergy Type Onset Date Status Substance with sulfonamide structure and antibacterial mechanism of action (substance) Sulfa Antibiotics Unknown Drug Allergy Active REASON FOR VISIT *Possible ingrown nail Medications Medication SIG (Take, Route, Frequency, Duration) Notes Start Date End Date Status Xifaxan 550 MG Oral for 14 Days Active Atorvastatin Calcium 10 MG TAKE 1 TABLET BY MOUTH AT BEDTIME Oral for 90 Days Active Losartan Potassium 50 MG Oral for 90 Days Active Dorzolamide HCl-Timolol Mal 22.3-6.8 MG/ML Ophthalmic for 50 Days Act jina Cholestyramine 4 GM/DOSE Oral for 42 Days Active Omeprazole 40 MG Oral for 90 Days Active Social History Tobacco Use: Social History Observation Description Date Details (start date - stop date) Never Smoker NA - NA Tobacco Use/Smoking Question Answer Notes Tobacco use: nonsmoker Vital Signs Height 66 in 02/17/2023 Weight 175 lbs 02/17/2023 BMI 28.24 kg/m2 02/17/2023 Height-cm 167.64 cm 02/17/2023 Weight-kg 79.38 kg 02/17/2023 Encounters Encounter Location Date Provider Diagnosis [facility] [address] [place], [place] [id number] 02/17/2023 HEDY Kapadia Plantar fasciitis of right foot M72.2 ; Ingrowing nail L60.0 and Pain in right foot M79.671 Assessments Encounter Date Diagnosis (ICD Code) Assessment Notes Treatment Notes Treatment Clinical Notes Section Notes 02/17/2023 Plantar fasciitis of right foot (ICD-10 - M72.2) Plantar Fascitis: I discussed anti-inflammatory treatment options and various means of pronation control with the patient. I educated the patient on icing and stretching, supportive shoegear, and the use of orthotic devices. Patient wants to try nsaids consistently for 3 weeks and topicals. Orthotic Recommendation: I recommended functional orthotics for the patient. Shoe Gear Recommendation: Advised patient on appropriate shoe gear for protection, healing and good foot health 02/17/2023 Ingrowing nail (ICD-10 - L60.0) 02/17/2023 Pain in right foot (ICD-10 - M79.671) Plan Of Treatment Treatment Notes Assessment Notes Plantar fasciitis of right foot Plantar Fascitis: I discussed anti-inflammatory treatment options and various means of pronation control with the patient. I educated the patient on icing and stretching, supportive shoegear, and the use of orthotic devices. Patient wants to try nsaids consistently for 3 weeks and topicals. Orthotic Recommendation: I recommended functional orthotics for the patient. Shoe Gear Recommendation: Advised patient on appropriate shoe gear for protection, healing and good foot health Next Appt Details Follow Up: 3 Weeks, Reason: right plantar fascitis after nsaids, stretching, otc inserts Progress Notes * BRE OROZCOOB:[birth year] (72 yo F)Acc No.[id number]:02/17/2023 Progress Notes Patient: ROBERT PEREZ Provider: Janie Seals DPM :1950 A ge:72 Y S ex:Female Date:02/17/2023 Address:[address] [place], [place] [id number] Subjective: * Chief Complaints: * 1 . *Possible ingrown nail. * HPI: H PI: New Complaint P atient presents for a new patient consultation. P atient complains of ingrown toe nails bilateral Great toes. Patient states that it used to bother her when her digital controls technical officer would dig them out but they have been feeling much better. Pt states she has plantar fascitis on the right foot. States that she has stretched it and wears supportive shoes. Patient denies any injuries. D uration of problem is several months. M A: . * ROS: G eneral / Constitutional: Patient denies c hange in appetite, chills, fatigue, fever.? C ardiovascular: Patient denies h air loss on leg, leg or foot ulcers, extremities cool. M usculoskeletal: Patient denies b roken foot bone, ankle sprain, gout. ? S kin: Patient denies a thletes foot, fungal nails, rash, ulcerations. N eurologic: Patient denies B urning/Tingling, Numbness, gait abnormality. * Medical History: A karly reflux, Blood transfusion, Pneumonia, Cancer (type of cancer), Hypertension. * Surgical History: a ppendectomy , Hysterectomy . * Social History: T obacco Use: T obacco Use/Smoking T obacco use: n onsmoker. * Medications: T aking Cholestyramine 4 GM/DOSE Powder Oral , Taking Dorzolamide HCl-Timolol Mal 22.3-6.8 MG/ML Solution Ophthalmic , Taking Losartan Potassium 50 MG Tablet Oral , Taking Omeprazole 40 MG Capsule Delayed Release Oral , Taking Atorvastatin Calcium 10 MG Tablet TAKE 1 TABLET BY MOUTH AT BEDTIME Oral , Taking Xifaxan 550 MG Tablet Oral * Allergies: S ulfa Antibiotics. Objective: * Vitals: S hoe Size: 9, Wt:175lbs, Wt-k.38 kg, Ht: 66 in, Ht-cm: 167.64 cm, BMI:28.24Index, Body Surface Area: 1.92. * Examination: C onstitutional: Constitutional T he patient is awake, alert, well developed, well groomed and well nourished.. M usculoskeletal: Muscle Strength M uscle strength is 5/5 in regards to dorsiflexion, plantarflexion, inversion, and eversion in bilateral lower extremities.. Plantar Fascia T here is pain on palpation to the m edial band of the right plantar fascia near its attachment to the calcaneus. There are no masses or defects noted to the ligament. Foot Structure T he foot structure is noted to be, normal, bilaterally. Gait T here is normal gait noted. N eurologic: [place] 5.07 monofilament I ntact protective sensation via 5.07 g swmf bilateral. Gross sensation G ross sensation is intact to light touch..? D ermatologic: Skin findings: S kin is warm, dry, supple with no breaks in the skin.. Nail pathology: N ails 1-5 bilateral are normal in appearance and thickness. No discoloration.. Hyperkeratotic Skin Lesion T here is no evidence of hyperkeratosis. Ingrown Nail N ail is incurvated on the, lateral border of the right great toenail, lateral border of the left great toenail. There is no pain on palpation. , There is no drainage. V ascular: Dorsalis pedis pulse: 2 /4, bilateral, bilateral. Posterior tibial pulse: 2 /4, bilaterally. Capillary refill: l ess than 3 seconds, bilaterally, bilaterally. Edema: N o edema noted b ilateral. ? Assessment: * Assessment: 1. P lantar fasciitis of right foot - M72.2 (Primary) 2 . I ngrowing nail - L60.0 3 . P ain in right foot - M79.671 Plan: * Treatment: * Follow Up: 3 Weeks (Reason: right plantar fascitis after nsaids, stretching, otc inserts) * Billing Information: * Visit Code: 09080 Office Visit, New Pt., Level 3. * Procedure Codes: * Sign off status: Completed true * Provider: Janie Seals DPM Date: 0 02/17/2023 Generated for Mariana lockhart/Cherie/Yossiitting on: 0 08/09/2024 01:34 PM PARTNER MANAGER History and Physical Notes * HPI (History of Present Illness) Category Sub-Category Detail Notes Category Not es HPI New Complaint Patient presents for a new patient consultation. Patient complains of ingrown toe nails bilateral Great toes. Patient states that it used to bother her when her digital controls technical officer would dig them out but they have been feeling much better. Pt states she has plantar fascitis on the right foot. States that she has stretched it and wears supportive shoes. Patient denies any injuries. Duration of problem is several months. MA: Examination Category Sub-Category Detail Notes Category Not es Dermatologic Skin findings: Skin is warm, dr y, supple with no breaks in the skin. Nail pathology: Nails 1-5 bilateral are normal in appearance and thickness. No discoloration. Hyperkeratotic Skin Lesion There is no e vidence of hyperkeratosis Ingrown Nail Nail is incurvated o n the, lateral border of the right great toenail, lateral border of the left great toenail. There is no pain on palpation. , There is no drainage Neurologic [place] 5.07 monofilamen t Intact protective sensation via 5.07 g swmf bilateral Gross sensation Gross sensation is i ntact to light touch. Vascular Dorsalis pedis pulse: 2/4, bilateral, marisa ateral Edema: No edema noted bilat eral Capillary refill: less than 3 seconds, bilaterally, bilaterally Posterior tibial pulse: 2/4, bilaterally Musculoskeletal Muscle Strength Muscle strength is 5/5 in regards to dorsiflexion, plantarflexion, inversion, and eversion in bilateral lower extremities. Plantar Fascia There is pain on pal pation to the medial band of the right plantar fascia near its attachment to the calcaneus. There are no masses or defects noted to the ligament Foot Structure The foot structure i s noted to be, normal, bilaterally Gait There is normal gait noted Constitutional Constitutional The patient is a wake, alert, well developed, well groomed and well nourished.
--- OUTSIDE RECORDS SUMMARY | 2024-08-09 13:35 | XMS_ITS ---
Author Organization [facility] Address [address] [place], [place] [id number] Care Team Providers Care Assembly Machine Offbearer Name Role Phone Ashley Chaogarrickohralhprobert Unavailable Unavaila HEDY Her [phone] Allergies Allergen (clinical drug ingredient) Drug/Non Drug Allergy documented on EMR Reaction Allergy Type Onset Date Status Substance with sulfonamide structure and antibacterial mechanism of action (substance) Sulfa Antibiotics Unknown Drug Allergy Active REASON FOR VISIT *General care Medications Medication SIG (Take, Route, Frequency, Duration) Notes Start Date End Date Status Omeprazole 40 MG Oral for 90 Days Active Atorvastatin Calcium 10 MG TAKE 1 TABLET BY MOUTH AT BEDTIME Oral for 90 Days Active methylPREDNISolone 4 MG as directed Oral ly as directed for 6 days 03/17/2023 03/23/2023 Active Losartan Potassium 50 MG Oral for 90 Days Active Xifaxan 550 MG Oral for 14 Days Active Dorzolamide HCl-Timolol Mal 22.3-6.8 MG/ML Ophthalmic for 50 Days Active Cholestyramine 4 GM/DOSE Oral for 42 Days Active Vital Signs Height 66 in 03/17/2023 Weight 175 lbs 03/17/2023 BMI 28.24 kg/m2 03/17/2023 Height-cm 167.64 cm 03/17/2023 Weight-kg 79.38 kg 03/17/2023 Encounters Encounter Location Date Provider Diagnosis [facility] [address] [place], [place] [id number] 03/17/2023 HEDY Kapadia Plantar fasciitis of right foot M72.2 ; Calcaneal spur of right foot M77.31 and Pain in right foot M79.671 Assessments Encounter Date Diagnosis (ICD Code) Assessment Notes Treatment Notes Treatment Clinical Notes Section Notes 03/17/2023 Plantar fasciitis of right foot (ICD-10 - M72.2) Plantar Fascitis: I discussed anti-inflammator y treatment options and various means of pronation control with the patient. I educated the patient on icing and stretching, supportive shoegear, and the use of orthotic devices. Inserts: Dispensed and fitted pre-fabricated arch supports. Educated patient on their use. Shoe Gear Recommendation: Advised patient on appropriate shoe gear for protection, healing and good foot health 03/17/2023 Calcaneal spur of right foot (ICD-10 - M77.31) 03/17/2023 Pain in right foot (ICD-10 - M79.671) Plan Of Treatment Medication Medication Name Sig Start Date Stop Date Notes methylPREDNISolone 4 MG as directed Oral ly as directed for 6 days 03/17/2023 03/23/2023 Treatment Notes Assessment Notes Plantar fasciitis of right foot Plantar Fascitis: I discussed anti-inflammatory treatment options and various means of pronation control with the patient. I educated the patient on icing and stretching, supportive shoegear, and the use of orthotic devices. Inserts: Dispensed and fitted pre-fabricated arch supports. Educated patient on their use. Shoe Gear Recommendation: Advised patient on appropriate shoe gear for protection, healing and good foot health Next Appt Details Follow Up: 3 Weeks, Reason: right plantar fascitis after medrol, stretching, powersteps Progress Notes * BRE OROZCOOB:[birth year] (72 yo F)Acc No.[id number]:03/17/2023 Patient: ROBERT PEREZ Provider: Janie Seals DPM :1950 A ge:72 Y S ex:Female Date:03/17/2023 Address:[address] [place], [place] [id number] Subjective: * Chief Complaints: * 1 . *General care. * HPI: H PI: Follow Up Visit Blake claudio presents for follow up visit for plantar fascitis r ight. P atient states their problem is i mproved slightly. She has good days and bad days now. Patient states the Ibuprofen helped. Pt states that she has been wearing birkenstocks. Patient states she needs some inserts for her shoes. M A: . * ROS: G eneral [...] Pneumonia, Cancer (type of cancer), Hypertension. * Medications: T aking Cholestyramine 4 GM/DOSE [...] Allergies: S ulfa Antibiotics. Objective: * Vitals: W t:175lbs, Wt-k.38 kg, Ht: 66 in, Ht-cm: 167.64 [...] here is normal gait noted. N eurologic: [place] 5.07 monofilament I ntact protective sensation via 5.07 g swmf bilateral. Gross sensation G dylan sensation is intact to light touch..? D [...] right foot - M72.2 (Primary) 2 . C alcaneal spur of right foot - M77.31 3 . P ain in right foot - M79.671 Plan: * Treatment: * Follow Up: 3 Weeks (Reason: right plantar fascitis after medrol, stretching, powersteps) * Billing Information: * Visit Code: 49615 Office Visit, Est Pt., Level 3. * Procedure Codes: * Sign off status: Completed true * Provider: Janie Seals DPM Date: Generated for Mariana lockhart/Cherie/Tawana on: 0 08/09/2024 01:34 PM FINANCIAL SYSTEMS MANAGER History and Physical Notes * HPI (History of Present Illness) Category Sub-Category Detail Notes Category Not es HPI Follow Up Visit Patient presents for follow up visit for plantar fascitis right. Patient states their problem is improved slightly. She has good days and bad days now. Patient states the Ibuprofen helped. Pt states that she has been wearing birkenstocks. Patient states she needs some inserts for her shoes. MA: Examination Category Sub-Category Detail Notes Category [...] palpation. , There is no drainage Neurologic [place] 5.07 monofilamen t Intact protective sensation via [...]
--- OUTSIDE RECORDS SUMMARY | 2024-08-09 13:35 | XMS_ITS | Referral Summary ---
Author Organization [facility] [email or web address] Address [address] [place] [address] Care Team Providers Care Wax Bleacher Name Role Phone Swati Chao MD Primary Care Provider Source Comments [facility],non-owned Affiliates and Associated Physician Practices is amultiple site organization consisting of ambulatory clinics and hospital sitesin [place], [place], [place] and [place]. This disclosure is being madepursuant to the Care Everywhere program and may not contain all information available regarding this patient. Last updated 18.[facility] [email or web address] Encounters Date Type Department Care Team Description 07/06/2024 Travel 07/06/2024 10:30 AM QUILLER TENDER Office Visit [facility] - REINSTATEMENT CLERK [address] [facility], [facility] [address] [place] [phone] Carmen Shi, INFORMATION SYSTEMS TECHNICIAN-SEAL MIXER Lichen sclerosus (Primary Dx); Fissure in skin 07/03/2024 Travel 06/26/2024 Travel from Last 3 Months Allergies No known active allergies Medications * [...] Multiple Vitamin (MULTI-VITAMIN PO) Active nystatin (Mycostatin) 119066 UNIT/GM ointmentIndications :Lichen sclerosus Use to vulvar [...] pressure 09/06/2023 09/06/2023 High cholesterol 09/06/2023 09/06/2023 Social History Tobacco Use Types Packs/Day Years [...] Comments Blood Pressure 126/72 07/06/2024 10:02 AM QUILLER TENDER Pulse - - Temperature - - Respiratory Rate - - Oxygen Saturation - - Inhaled Oxygen Concentration - - Weight 77.5 kg (170 lb 12.8 oz) 025 10:02 AM QUILLER TENDER Height 167.6 cm (5' 6 ) 07/06/2024 10:0 2 AM QUILLER TENDER Body Mass Index 27.57 07/06/2024 10:02 AM QUILLER TENDER Plan of Treatment Upcoming Encounters Date Type Department Care Team (Late st Contact Info) Description 10/31/2024 10:50 AM CDT Office Visit [facility] - REINSTATEMENT CLERK [address] [facility] [address] [place] [phone] Carmen Shi, INFORMATION SYSTEMS TECHNICIAN-SEAL MIXER [address] [facility] [address] [place] [address] Care Teams Wax Bleacher Relationship Specialty Start Date End Date Swati Chao MD [address] [facility] [address] [place], [place] [address] PCP - General Family Medicine 09/06/23
--- OUTSIDE RECORDS SUMMARY | 2024-08-09 13:35 | XMS_ITS | Patient Health Record ---
Author Organization [facility] Address [address] [place], [place] [id number] Care Team Providers Care Work Checker Name Role Phone Ashley Chaobrittney Unavailable Unavaila ble Allergies Allergen (clinical drug ingredient) Drug/Non Drug Allergy documented on EMR Reaction Allergy Type Onset Date Status Substance with sulfonamide structure and antibacterial mechanism of action (substance) Sulfa Antibiotics Unknown Drug Allergy Active Reason For Referral No Information Medications Medication SIG (Take, Route, Frequency, Duration) Notes Start Date End Date Status Omeprazole 40 MG Oral for 90 Days Active Atorvastatin Calcium 10 MG TAKE 1 TABLET BY MOUTH AT BEDTIME Oral for 90 Days Active Dorzolamide HCl-Timolol Mal 22.3-6.8 MG/ML Ophthalmic for 50 Days Act jina Losartan Potassium 50 MG Oral for 90 Days Active Xifaxan 550 MG Oral for 14 Days Active Cholestyramine 4 GM/DOSE Oral for 42 Days Active Social History Tobacco Use: Social History Observation Description Date Details (start date - stop date) Never Smoker NA - NA Tobacco Use/Smoking Question Answer Notes Tobacco use: nonsmoker Plan Of Treatment No Information Insurance Providers Payer Name Payer Address Payer Phone Subscriber Number Group Number Insured Name Patient Relationship to Insured Coverage Start Date Coverage End Date [facility] [address] [address] [place], [place] [id number] ROBERT OROZCO Self - patient is the insured Medical (General) History Medical History History ICD Code acid reflux Blood transfusion Pneumonia Cancer (type of cancer) hypertension Surgical History Surgery Date(Month/Year) appendectomy Hysterectomy
--- OUTSIDE RECORDS SUMMARY | 2024-08-09 13:35 | XMS_ITS | Patient Health Summary ---
Author Organization [facility] Address [address] [facility] [facility] [place] [address] Care Team Providers Care Automobile Bumper Straightener Name Role Phone Swati Chao MD Primary Care Provider Note from [facility],non-owned Affiliates and Associated Physician Practices is amultiple site organization consisting of ambulatory clinics and hospital sitesin [place], [place], [place] and [place]. This disclosure is being madepursuant to the Care Everywhere program and may not contain all information available regarding this patient. Last updated 18.[facility] Allergies No known active allergies Medications * Be aware that medications may not be up to date on this document. Alwaysverify current medications with the patient. * BRIMONIDINE 0.15%-DORZOLAMIDE 2% PF EYE DROPS (COMPOUNDED) * LOPERAMIDE HCL PO * losartan (Cozaar) 50 MG tablet(Started 03/11/2023) Take 1 (one) tablet by mouth once daily * ofloxacin (Floxin) 0.3 % otic solution(Started 07/23/2022) INSTILL 5 DROPS INTO THE EAR(S) THREE TIMES A DAY FOR 7 DAYS AFFECTED EAR * omeprazole (PriLOSEC) 40 MG capsule(Started 08/21/2023) Take 1 (one) capsule by mouth once daily * LORazepam (Ativan) 0.5 MG tablet(Started 05/16/2023) Take 1 (one) tablet by mouth once daily as needed FOR ANXIETY * dorzolamide-timolol (Cosopt) 2-0.5 % ophthalmic solution(Started 08/02/2023) INSTILL 1 DROP INTO BOTH EYES TWICE A DAY DIRECTED * atorvastatin (Lipitor) 10 MG tablet(Started 08/11/2023) Take 1 (one) tablet by mouth at bedtime * Multiple Vitamin (MULTI-VITAMIN PO) * nystatin (Mycostatin) 481882 UNIT/GM ointment(Started 09/06/2023) Use to vulvar skin with the Triamcinolone ointment 0.1% twice weekly. 1 refill by 09/05/2024 * triamcinolone acetonide (Kenalog) 0.1 % ointment(Started 09/06/2023) Use to vulvar skin with the nystatin ointment twice weekly 1 refill by 09/05/2024 * vitamin D3 (Cholecalciferol) 10 MCG (400 UNIT) tablet Take by mouth once daily * cyanocobalamin (Vitamin B-12) 500 MCG tablet Take 1 (one) tablet by mouth once daily * vitamin D3 (Cholecalciferol) 25 MCG (1000 UNITS) tablet Take by mouth once daily * clobetasol (Temovate) 0.05 % ointment(Started 07/06/2024) APPLY to vulvar skin twice a day x 2 weeks & then daily x 2 weeks 1 refill by 07/06/2025 Active Problems Problem Noted Date Diagnosed Date [...] Comments Blood Pressure 126/72 07/06/2024 10:02 AM CONCESSION STAND ATTENDANT Pulse - - Temperature - - Respiratory Rate - - Oxygen Saturation - - Inhaled Oxygen Concentration - - Weight 77.5 kg (170 lb 12.8 oz) 025 10:02 AM CONCESSION STAND ATTENDANT Height 167.6 cm (5' 6 ) 07/06/2024 10:0 2 AM CONCESSION STAND ATTENDANT Body Mass Index 27.57 07/06/2024 10:02 AM CONCESSION STAND ATTENDANT Care Teams Automobile Bumper Straightener Relationship Specialty Start Date End Date Swati Chao MD [facility] [address] [address] PCP - General Family Medicine 09/06/23
== END 2024-08-09 12:13 | disposition home or self-care (01) ==
LOC: CHSLAB 12:14
PROVIDERS: PCP Family Medicine; Visit Provider Family Medicine
DX: I10 Essential (primary) hypertension (principal); Z79.899 Other long term (current) drug therapy
CPT/HCPCS: 36415; 80053

== ENCOUNTER 2024-08-27 13:40 | Outpatient (CLI) | payer MEDICARE, SELFPAY ==
[2024-08-27 14:40] LABS: Anion Gap 12 mmol/L (4-12); Blood Urea Nitrogen 22 mg/dL (7-18); Carbon Dioxide 27 mmol/L (21-32); Chloride 103 mmol/L (98-108); Estimated Glomerular Filt Rate 59; Glucose 99 mg/dL (70-99); Osmolality Calculated 297 mOsm/kg (285-295); Potassium 4.5 mmol/L (3.5-5.1); Sodium 142 mmol/L (136-145)
--- OUTSIDE RECORDS SUMMARY | 2024-08-27 15:39 | XMS_ITS | Patient Health Record ---
Author Organization [facility] Address [address] [place], [place] [address] Care Team Providers Care Brusher Operator Name Role Phone Ashley Chaobrittney Unavailable Unavaila [...] Insured Coverage Start Date Coverage End Date [facility] [address] [address] [place], [place] [id number] ROBERT OROZCO Self - patient is the insured Medical (General) History Medical History History ICD Code acid reflux Blood transfusion Pneumonia Cancer (type of cancer) hypertension Surgical History Surgery Date(Month/Year) appendectomy Hysterectomy
--- OUTSIDE RECORDS SUMMARY | 2024-08-27 15:39 | XMS_ITS ---
Author Organization [facility] Address [address] [place], [place] [address] Care Team Providers Care Patient Access Manager Name Role Phone RaeannAshley combsmarianorobert Unavailable Unavaila RAFFI Triplett Unavailable [phone] REASON FOR VISIT *General care Encounters Encounter Location Date Provider Diagnosis [facility] [address] [place], [place] [phone] 04/14/2023 RAFFI TAYLOR Plan Of Treatment No Information Progress Notes * ERNESTO, NADAROB:[birth year] (73 yo F)Acc No.[id number]:04/14/2023 Patient: ROBERT PEREZ Provider: Gregg TAYLOR :1950 A ge:72 Y S ex:Female Date:04/14/2023 Address[address] [facility] Subjective: * Chief Complaints: * 1 . *General care. * Medical History: Objective: * Vitals: Assessment: Plan: * Treatment: * Billing Information: * Visit Code: * Procedure Codes: * Electronic signature of BRADLEY TAYLOR DPM on 08/27/2024 at 03:38 PM CDT Sign off status: Pending * Provider: Gregg TAYLOR Date: 1 06/14/2022 Generated for Mariana lockhart/Cherie/Yossiitting on: 0 08/27/2024 03:38 PM CDT
--- OUTSIDE RECORDS SUMMARY | 2024-08-27 15:39 | XMS_ITS ---
Author Organization [facility] Address [address] [place], [place] [id number] Care Team Providers Care Manager Banking Name Role Phone Ashley Chaogarrickohralphrobert Unavailable Unavaila HEDY Her [phone] Allergies Allergen (clinical drug ingredient) Drug/Non Drug [...] Oral for 42 Days Active Vital Signs Weight 175 lbs 03/17/2023 Weight-kg 79.38 kg 03/17/2023 Height 66 in 03/17/2023 Height-cm 167.64 cm 03/17/2023 BMI 28.24 kg/m2 03/17/2023 Encounters Encounter Location Date Provider Diagnosis [facility] [address], [place] [id number] 03/17/2023 HEDY Kapadia Plantar fasciitis of right [...] * BRE OROZCOOB:[birth year] (72 yo F)Acc No.[id number]:03/17/2023 Patient: ROBERT PEREZ Provider: Janie Seals DPM :1950 A ge:72 Y S ex:Female Date:03/17/2023 Address:[address] [place], [place] [id number] Subjective: * Chief Complaints: * 1 . [...] here is normal gait noted. N eurologic: [place] 5.07 monofilament I ntact protective sensation via [...] powersteps) * Billing Information: * Visit Code: 59785 Office Visit, Est Pt., Level 3. * Procedure Codes: * Sign off status: Completed true * Provider: Janie Seals DPM Date: Generated for Mariana lockhart/Cherie/Tawana on: 0 08/27/2024 03:39 PM CDT History and Physical Notes * HPI (History [...] palpation. , There is no drainage Neurologic [place] 5.07 monofilamen t Intact protective sensation via [...]
--- OUTSIDE RECORDS SUMMARY | 2024-08-27 15:39 | XMS_ITS | Clinical Summary ---
Author Organization [facility] Address [address] [place] [address] Care Team Providers Care Video Tape Duplicator Name Role Phone Swati Chao MD Primary Care Provider Source Comments [facility],non-owned Affiliates and Associated Physician Practices is amultiple site organization consisting of ambulatory clinics and hospital sitesin [place], [place], [place] and [place]. This disclosure is being madepursuant to the Care Everywhere program and may not contain all information available regarding this patient. Last updated 18.[facility] Allergies No known active allergies Medications * [...] Multiple Vitamin (MULTI-VITAMIN PO) Active nystatin (Mycostatin) 721413 UNIT/GM ointmentIndications :Lichen sclerosus Use to vulvar [...] Department Care Team Description 07/06/2024 10:30 AM SPRAY DRY OPERATOR Office Visit [facility] - TYPEWRITER MECHANIC [address] [place] [address] Carmen Shi, MALIK-PAPER INSPECTOR Lichen sclerosus (Primary Dx); Fissure in skin [...] Comments Blood Pressure 126/72 07/06/2024 10:02 AM SPRAY DRY OPERATOR Pulse - - Temperature - - Respiratory Rate - - Oxygen Saturation - - Inhaled Oxygen Concentration - - Weight 77.5 kg (170 lb 12.8 oz) 025 10:02 AM SPRAY DRY OPERATOR Height 167.6 cm (5' 6 ) 07/06/2024 10:0 2 AM SPRAY DRY OPERATOR Body Mass Index 27.57 07/06/2024 10:02 AM SPRAY DRY OPERATOR Plan of Treatment Upcoming Encounters Date Type Department Care Team (Late st Contact Info) Description 10/31/2024 10:50 AM CDT Office Visit [facility] - TYPEWRITER MECHANIC [address] [place] [address] Carmen Shi, COMPOSITE WORKER-PAPER INSPECTOR [address] [address] Health Maintenance Due Date Last [...] complete this topic MENINGOCOCCAL (Group B) VACCINE SHARED DECISION-MAKING Aged Out No longer eligible based on patient's age to complete this topic MENINGOCOCCAL GROUPS A/C/Y/W VACCINE Aged Out No longer eligible based on patient's age to complete this topic Care Teams Video Tape Duplicator Relationship Specialty Start Date End Date Swati Chao MD [facility] [place] [address] PCP - General Family Medicine 09/06/23
== END 2024-08-27 13:41 | disposition home or self-care (01) ==
LOC: CHSLAB 13:41
PROVIDERS: PCP Family Medicine; Visit Provider Family Medicine
DX: N28.9 Disorder of kidney and ureter, unspecified (principal)
CPT/HCPCS: 36415; 80048

== ENCOUNTER 2024-11-26 11:55 | Outpatient (CLI) | payer MEDICARE, SELFPAY ==
--- NOTE | ~2024-11-26 | DEXA_ITS ---
Bone Density Report Name: ROBERT OROZCO Age: 74 Sex: Female Ethnicity: White Date of : 1950 Indication: osteopenia; Referring Provider: PEYTON MURILLO Study: Bone densitometry was performed. Exam Date: November 26, 2024 Accession number: [id number] Bone Density: Region BMD T-score Z-score Classification AP Spine(L1-L4) 0.814 -2.1 0.2 Osteopenia Femoral Neck (Left) 0.653 -1.8 0.2 Osteopenia Total Hip (Left) 0.881 -0.5 1.2 Normal Femoral Neck (Right) 0.677 -1.5 0.4 Osteopenia Total Hip (Right) 0.974 0.3 1.9 Normal Femoral Neck Mean 0.665 -1.7 0.3 Osteopenia Total Hip Mean 0.927 -0.1 1.5 Normal World Health Organization criteria for BMD impression classify patients as: Normal (T-score at or above -1.0), Osteopenia (T-score between -1.0 and -2.5), or Osteoporosis (T-score at or below -2.5). 10-year Fracture Risk(1): Major Osteoporotic Fracture 11% Hip Fracture 2.2% Reported Risk Factors: [place] (), Neck BMD=0.653, BMI=27.3 (1) FRAX(R) Version 3.08. Fracture probability calculated for an untreated patient. Fracture probability may be lower if the patient has received treatment. Previous Exams: Region Exam Age BMD T-score BMD Change BMD Change Date g/cm2 vs Baseline vs Previous AP Spine (L1-L4) 11/26/2024 74 0.814 -2.1 0.023 (2.9%)* 0.023 (2.9%)* 11/24/2022 72 0.791 -2.3 Total Hip(Left) 11/26/2024 74 0.881 -0.5 0.024 (2.9%) 0.024 (2.9%) 11/24/2022 72 0.856 -0.7 Total Hip(Right) 11/26/2024 74 0.974 0.3 0.104 (11.9%)* 0.104 (11.9%)* 11/24/2022 72 0.870 -0.6 *Denotes significance at 95% confidence level, LSC for AP Spine = 0.022 g/cm2, LSC for Total Hip = 0.027 g/cm2 Clinical Information Provided by Patient: Patient maximum height was 66 Menopause Age: 56 Drinks caffeinated beverages Onset of menses at age 13 Number of children 2 Impression: The patient has low bone mass, based on the Total Spine T-score. No significant bone loss was observed. Discussion: BONE DENSITY IS LOW AT ONE OR MORE SKELETAL SITES. This patient's lowest T-score is low at one or more skeletal sites. It meets the World Health Organization's (WHO) criteria for ?low bone mass? (T-score between -1.0 and -2.5). The patient's 10-year risk of fracture as calculated by FRAX is less than the threshold where pharmacological therapy is recommended by the National Osteoporosis Foundation (NOF). However, all treatment decisions require clinical judgment and consideration of individual patient factors, including patient preferences, comorbidities, previous drug use, risk factors not captured in the FRAX model (e.g., frailty, falls, vitamin D deficiency, increased bone turnover, interval significant decline in bone density) and possible under or overestimation of fracture risk by FRAX. The patient should follow a healthful lifestyle (good nutrition with adequate calcium and vitamin D, and appropriate weight-bearing exercise). Follow-Up: Consider repeating this study in 2 to 3 years to reassess this patient's status, or sooner if there is some new clinical indication. Reported by: DEONNA on 11/26/2024 12:14:00 PM. Reviewed, dictated and finalized at location A.
== END 2024-11-26 11:56 | disposition home or self-care (01) ==
LOC: CHSIMG 11:56
PROVIDERS: PCP Family Medicine; Visit Provider Family Medicine
DX: Z78.0 Asymptomatic menopausal state (principal); M85.89 Other specified disorders of bone density and structure, multiple sites
CPT/HCPCS: 77080

== ENCOUNTER 2025-02-25 10:49 | Outpatient (CLI) | payer MEDICARE, SELFPAY ==
--- OUTSIDE RECORDS SUMMARY | 2025-02-25 11:59 | XMS_ITS | Clinical Summary ---
Author Organization [facility] Address [address] [place] [address] Care Team Providers Care Supervisor Boarding Name Role Phone Swati Chao MD Primary Care Provider Source Comments [facility],non-owned Affiliates and Associated Physician Practices is amultiple site organization consisting of ambulatory clinics and hospital sitesin [place], [place], [place] and [place]. This disclosure is being madepursuant to the Care Everywhere program and may not contain all information available regarding this patient. Last updated 18.[facility] Allergies No known active allergies Medications * Be aware that medications may not be up to date on this document. Alwaysverify current medications with the patient. BRIMONIDINE 0.15%-DORZOLAM JADEN 2% PF EYE DROPS (COMPOUNDED) Active LOPERAMIDE HCL PO Active losartan (Cozaar) 50 MG tablet Take 1 (one) tablet by mouth once daily 3 Active ofloxacin (Floxin) 0.3 % otic solution INSTILL 5 DROPS INTO THE EAR(S) THREE TIMES A DAY FOR 7 DAYS AFFECTED EAR 3 Active omeprazole (PriLOSEC) 40 MG capsule Take 1 (one) capsule by mouth once daily 4 Active LORazepam (Ativan) 0.5 MG tablet Take 1 (one) tablet by mouth once daily as needed FOR ANXIETY 3 Active dorzolamide-ti molol (Cosopt) 2-0.5 % ophthalmic solution INSTILL 1 DROP INTO BOTH EYES TWICE A DAY DIRECTED 4 Active atorvastatin (Lipitor) 10 MG tablet Take 1 (one) tablet by mouth at bedtime 4 Active Multiple Vitamin (MULTI-VITAMIN PO) Active nystatin (Mycostatin) 079112 UNIT/GM ointmentIndica tions:Lichen sclerosus Use to vulvar skin with the Triamcinolone ointment 0.1% twice weekly. 30 g 1 4 Active triamcinolone acetonide (Kenalog) 0.1 % ointmentIndica tions:Lichen sclerosus Use to vulvar skin with the nystatin ointment twice weekly 30 g 1 4 Active vitamin D3 (Cholecalcifer ol) 10 MCG (400 UNIT) tablet Take by mouth once daily Active cyanocobalamin (Vitamin B-12) 500 MCG tablet Take 1 (one) tablet by mouth once daily Active vitamin D3 (Cholecalcifer ol) 25 MCG (1000 UNITS) tablet Take by mouth once daily Active clobetasol (Temovate) 0.05 % ointmentIndica tions:Lichen sclerosus,Fiss ure in skin APPLY to vulvar skin twice a day x 2 weeks & then daily x 2 weeks 30 g 1 5 Active Active Problems Problem Noted Date Diagnosed Date GERD (gastroesophageal reflux disease) 4 09/06/2023 High blood pressure 09/06/2023 09/06/2023 High cholesterol 09/06/2023 09/06/2023 Family History Medical History Relation Name Comments [...] Recorded Patient Health Questionnaire-2 Score 0 07/04/2024 Comments No Sex and Gender Information Value Date Recorded Sex Assigned at Female 08/30/2023 9:16 AM CDT Legal Sex Female 8:21 AM PROSTHETIC ASSISTANT Gender Identity Female 08/30/2023 9:16 AM CDT Sexual Orientation Straight 08/30/2023 9: 16 AM CDT Last Filed Vital Signs Vital Sign Reading Time Taken Comments Blood Pressure 126/72 07/06/2024 10:02 AM PROSTHETIC ASSISTANT Pulse - - Temperature - - Respiratory Rate - - Oxygen Saturation - - Inhaled Oxygen Concentration - - Weight 77.5 kg (170 lb 12.8 oz) 025 10:02 AM PROSTHETIC ASSISTANT Height 167.6 cm (5' 6) 07/06/2024 10:0 2 AM PROSTHETIC ASSISTANT Body Mass Index 27.57 07/06/2024 10:02 AM PROSTHETIC ASSISTANT Plan of Treatment Health Maintenance Due Date Last Done Comments [...] 11/19/2001 ZOSTER VACCINE (1 of 2) 11/19/2001 MEDICARE AWV CALENDAR YEAR 2024 COVID-19 VACCINE ( season) 2025 05/17/2022, 05/11/2021, 08/15/2020, Additional history exists INFLUENZA VACCINE (#1) 2025 , 04/14/2022, 03/08/2021, Additional history exists Respiratory Syncytial Virus (RSV) Vaccine Pt: or over 60 yrs (1 - 1-dose 75+ series) 11/19/2026 DEPRESSION SCREENING Completed 07/06/2024, 09/06/19 24 HEPATITIS B VACCINE Aged Out No longe [...] on patient's age to complete this topic Insurance [facility] MANAGED MEDICARE ADV Care Teams Supervisor Boarding Relationship Specialty Start Date End Date Swati Chao MD [address] [facility] [address] [address] PCP - General Family Medicine 09/06/23
[2025-02-25 13:08] LABS: Alanine Aminotransferase 29 U/L (6-35); Albumin Level 4.7 g/dL (3.5-5.1); Alkaline Phosphatase 71 U/L (38-126); Anion Gap 9 mmol/L (4-12); Aspartate Amino Transferase 46 U/L (14-36); Bilirubin,Total 0.7 mg/dL (0.2-1.3); Blood Urea Nitrogen 14 mg/dL (7-17); Calcium 9.4 mg/dL (8.4-10.2); Carbon Dioxide 27 mmol/L (22-30); Chloride 106 mmol/L (98-107); Cholesterol 163 mg/dL (0-200); Estimated Glomerular Filt Rate > 60; Glucose 96 mg/dL (65-110); HDL Direct 57 mg/dL; Potassium 4.2 mmol/L (3.4-5.0); Sodium 142 mmol/L (137-145); Total Protein 7.9 g/dL (6.3-8.2); Triglycerides 99 mg/dL (<150)
[2025-02-25 13:46] LABS: Hematocrit 39.6 % (37.0-47.0); Hemoglobin 12.9 g/dL (12.0-15.0); Immature Granulocyte Percent A 0.3 % (0-0.5); Lymphocytes Absolute Auto 1.37 K/mm3 (0.9-3.2); Mean Corpuscular HGB Conc 32.6 g/dl (32-36); Mean Corpuscular Hemoglobin 30.7 pg (26-34); Mean Corpuscular Volume 94.3 fl (80-100); Nucleated Red Blood Cells Absolute Auto 0.000 K/mm3 (0.0-0.012); Nucleated Red Blood Cells Perc 0.0 % (0.0-0.2); Platelet Count Result 222 k/mm3 (150-375); Red Blood Count 4.20 M/mm3 (4.2-5.4); Thyroid Stimulating Hormone Reflex 1.430 uIU/mL (0.465-4.68); White Blood Count 3.7 K/mm3 (4.5-10.0)
[2025-02-25 14:04] LABS: Vitamin B12 251.0 pg/mL (239-931)
[2025-02-25 14:43] LABS: Hemoglobin A1C 5.6 % (<5.7)
== END 2025-02-25 10:50 | disposition home or self-care (01) ==
LOC: ANHGOSHLAB 10:49
PROVIDERS: PCP Family Medicine; Visit Provider Family Medicine
DX: R73.9 Hyperglycemia, unspecified (principal); I10 Essential (primary) hypertension; Z00.00 Encounter for general adult medical examination without abnormal findings; E78.5 Hyperlipidemia, unspecified; E55.9 Vitamin D deficiency, unspecified; E53.8 Deficiency of other specified B group vitamins
CPT/HCPCS: 36415; 80053; 80061; 82306; 82607; 83036; 84443; 85025

== ENCOUNTER 2025-02-28 08:18 | Outpatient (CLI) | payer MEDICARE, SELFPAY ==
--- NOTE | ~2025-02-28 | MM_ITS ---
EXAMINATION: MM screening bruno BI w gentry HISTORY: Screening TECHNIQUE: Craniocaudal and mediolateral oblique 3-D tomosynthesis images were obtained and synthetic 2-D images were generated. CAD analysis was submitted and interpreted. COMPARISON: 08/14/2021 BREAST PARENCHYMAL COMPOSITION: There are scattered areas of fibroglandular density. FINDINGS: There is no evidence of suspicious mass, calcification, or architectural distortion to suggest malignancy. There has been no suspicious interval change. IMPRESSION: 1. No mammographic evidence of malignancy. Recommend routine screening mammography in one year. BI-RADS Category 2: Benign finding(s) Reviewed, dictated and finalized at location Q. IMPRESSION: 1. No mammographic evidence of malignancy. Recommend routine screening mammogra phy in one year. BI-RADS Category 2: Benign finding(s)
--- OUTSIDE RECORDS SUMMARY | 2025-02-28 08:26 | XMS_ITS | Clinical Summary ---
Author Organization [facility] Address [address] [place] [address] Care Team Providers Care Saw Tailer Name Role Phone Swati Chao MD Primary Care Provider Source Comments [facility],non-owned Affiliates and Associated Physician Practices is amultiple site organization consisting of ambulatory clinics and hospital sitesin [place], [place], [place] and [place]. This disclosure is being madepursuant to the Care Everywhere program and may not contain all information available regarding this patient. Last updated 18.[facility] Allergies No known active allergies Medications * [...] Multiple Vitamin (MULTI-VITAMIN PO) Active nystatin (Mycostatin) 386918 UNIT/GM ointmentIndica tions:Lichen sclerosus Use to vulvar [...] AM CDT Legal Sex Female 8:21 AM HISTORICAL MANUSCRIPTS CURATOR Gender Identity Female 08/30/2023 9:16 AM CDT Sexual Orientation Straight 08/30/2023 9: 16 AM CDT Last Filed Vital Signs Vital Sign Reading Time Taken Comments Blood Pressure 126/72 07/06/2024 10:02 AM HISTORICAL MANUSCRIPTS CURATOR Pulse - - Temperature - - Respiratory Rate - - Oxygen Saturation - - Inhaled Oxygen Concentration - - Weight 77.5 kg (170 lb 12.8 oz) 025 10:02 AM HISTORICAL MANUSCRIPTS CURATOR Height 167.6 cm (5' 6) 07/06/2024 10:0 2 AM HISTORICAL MANUSCRIPTS CURATOR Body Mass Index 27.57 07/06/2024 10:02 AM HISTORICAL MANUSCRIPTS CURATOR Plan of Treatment Health Maintenance Due Date [...] patient's age to complete this topic Insurance [facility] MANAGED MEDICARE ADV Care Teams Saw Tailer Relationship Specialty Start Date End Date Swati Chao MD [address] [facility] [address] [address] PCP - General Family Medicine 09/06/23
--- OUTSIDE RECORDS SUMMARY | 2025-02-28 08:26 | XMS_ITS | Patient Health Record ---
Author Organization [facility] Address [address] [place], [place] [id number] Care Team Providers Care Feather Drying Machine Operator Name Role Phone Ashley Chaobrittney Unavailable Unavaila ble Allergies Allergen (clinical drug ingredient) Drug/Non Drug Allergy documented on EMR Reaction Allergy Type Onset Date Status Substance with sulfonamide structure and antibacterial mechanism of action (substance) Sulfa Antibiotics Unknown Drug Allergy Active Reason For Referral No Information Medications Medication SIG (Take, Route, Frequency, Duration) Notes Start Date End Date Status Omeprazole 40 MG Oral; Duration: 90 Days Active Atorvastatin Calcium 10 MG TAKE 1 TABLET BY MOUTH AT BEDTIME Oral; Duration: 90 Days Active Dorzolamide HCl-Timolol Mal 22.3-6.8 MG/ML Ophthalmic; Duration: 50 Days Active Losartan Potassium 50 MG Oral; Duration: 90 Days Active Xifaxan 550 MG Oral; Duration: 14 Days Active Cholestyramine 4 GM/DOSE Oral; Duration: 42 Days Active Social History Tobacco Use: Social History Observation Description Date Details (start date - stop date) Never Smoker NA - NA Tobacco Use/Smoking Question Answer Notes Tobacco use: nonsmoker Plan Of Treatment No Information Insurance Providers Payer Name Payer Address Payer Phone Subscriber Number Group Number Insured Name Patient Relationship to Insured Coverage Start Date Coverage End Date [facility] [address] [address] [place], [place] [id number] ROBERT OROZCO Self - patient is the insured Medical (General) History Medical History History ICD Code acid reflux Blood transfusion Pneumonia Cancer (type of cancer) hypertension Surgical History Surgery Date(Month/Year) appendectomy Hysterectomy
== END 2025-02-28 08:19 | disposition home or self-care (01) ==
LOC: CHSIMG 08:20
PROVIDERS: PCP Family Medicine; Visit Provider Family Medicine
DX: Z12.31 Encounter for screening mammogram for malignant neoplasm of breast (principal)
CPT/HCPCS: 77063; 77067

== ENCOUNTER 2025-02-28 15:24 | Outpatient (CLI) | payer MEDICARE, SELFPAY ==
--- NOTE | ~2025-02-28 | XR_ITS ---
XR abdomen/kub 1V 02/28/2025 15:36 Indication: Diarrhea and fecal urgency. Procedure: KUB Comparison: No prior studies for comparison. Findings: There is a small stone in the lower pole of the left kidney. There are pelvic phleboliths. No acute osseous abnormality. Nonobstructive bowel gas pattern. No acute osseous abnormality. Impression: 1: Left nephrolithiasis. Reviewed, dictated and finalized at location O. Impression: 1: Left nephrolithiasis.
--- OUTSIDE RECORDS SUMMARY | 2025-02-28 17:33 | XMS_ITS | Clinical Summary ---
Author Organization [facility] Address [address] [place] [address] Care Team Providers Care Special Events Coordinator Name Role Phone Swati Chao MD Primary Care Provider Source Comments [facility],non-owned Affiliates and Associated Physician Practices is amultiple site organization consisting of ambulatory clinics and hospital sitesin [place], [place], [place] and [place]. This disclosure is being madepursuant to the Care Everywhere program and may not contain all information available regarding this patient. Last updated 18.[facility] Allergies No known active allergies Medications * [...] Multiple Vitamin (MULTI-VITAMIN PO) Active nystatin (Mycostatin) 477417 UNIT/GM ointmentIndica tions:Lichen sclerosus Use to vulvar [...] AM CDT Legal Sex Female 8:21 AM ADVERTISING OPERATIONS COORDINATOR Gender Identity Female 08/30/2023 9:16 AM CDT Sexual Orientation Straight 08/30/2023 9: 16 AM CDT Last Filed Vital Signs Vital Sign Reading Time Taken Comments Blood Pressure 126/72 07/06/2024 10:02 AM ADVERTISING OPERATIONS COORDINATOR Pulse - - Temperature - - Respiratory Rate - - Oxygen Saturation - - Inhaled Oxygen Concentration - - Weight 77.5 kg (170 lb 12.8 oz) 025 10:02 AM ADVERTISING OPERATIONS COORDINATOR Height 167.6 cm (5' 6) 07/06/2024 10:0 2 AM ADVERTISING OPERATIONS COORDINATOR Body Mass Index 27.57 07/06/2024 10:02 AM ADVERTISING OPERATIONS COORDINATOR Plan of Treatment Health Maintenance Due Date [...] patient's age to complete this topic Insurance [facility] MANAGED MEDICARE ADV Care Teams Special Events Coordinator Relationship Specialty Start Date End Date Swati Chao MD [address] [facility] [address] [address] PCP - General Family Medicine 09/06/23
== END 2025-02-28 15:25 | disposition home or self-care (01) ==
PROVIDERS: PCP Family Medicine; Visit Provider Nurse Practitioner
DX: K58.0 Irritable bowel syndrome with diarrhea (principal); N20.0 Calculus of kidney
CPT/HCPCS: 74018

== ENCOUNTER 2025-03-02 10:46 | Outpatient (CLI) | payer MEDICARE, SELFPAY ==
--- OUTSIDE RECORDS SUMMARY | 2025-03-02 10:49 | XMS_ITS | Patient Health Record ---
Author Organization [facility] Address [address] [place], [place] [address] Care Team Providers Care Receptionist Secretary Name Role Phone Ashley Chaobrittney Unavailable Unavaila [...] Coverage End Date [facility] [address] [address] [place], [place] [id number] ROBERT OROZCO Self - patient is the insured Medical (General) History Medical History History ICD Code acid reflux Blood transfusion Pneumonia Cancer (type of cancer) hypertension Surgical History Surgery Date(Month/Year) appendectomy Hysterectomy
[2025-03-04 13:08] LABS: Pancreatic Elastase, Fecal >800 (>200)
[2025-03-05 07:09] LABS: Calprotectin, Fecal 42 ug/g (0-120)
== END 2025-03-02 10:47 | disposition home or self-care (01) ==
LOC: CHSLAB 10:47
PROVIDERS: PCP Family Medicine; Visit Provider Nurse Practitioner
DX: K58.0 Irritable bowel syndrome with diarrhea (principal)
CPT/HCPCS: 82653; 83993; 87045; 87046; 87177; 87427

== ENCOUNTER 2025-03-05 07:30 | Outpatient (CLI) | payer MEDICARE, SELFPAY ==
--- NOTE | ~2025-03-05 | NM_ITS ---
EXAMINATION: NM stress w perf spect multi DATE: 03/05/2025 09:40 INDICATION: Other forms of dyspnea. TECHNIQUE: Rest images were obtained following intravenous administration of 11.3 mCi Tc99m tetrofosmin (Myoview). The patient performed an exercise activity. At peak exercise, 34.9 mCi Tc99m tetrofosmin (Myoview) was administered intravenously, and stress images were obtained. Data was reconstructed into short axis and horizontal and vertical long axis SPECT images. Gated SPECT images were also obtained. COMPARISON: None. FINDINGS: There is no definite reversible or fixed perfusion abnormality to suggest ischemia or infarction. There is no segmental wall motion abnormality. Left ventricular ejection fraction measures >70%. IMPRESSION: 1. No definite ischemia or infarct. 2. Normal left ventricular ejection fraction measuring >70%. Reviewed, dictated and finalized at location E.
--- OUTSIDE RECORDS SUMMARY | 2025-03-05 07:34 | XMS_ITS | Patient Health Record ---
Author Organization [facility] Address [address] [place], [place] [id number] Care Team Providers Care Printing Roller Polisher Name Role Phone Ashley Chaobrittney Unavailable Unavaila [...] Insured Coverage Start Date Coverage End Date [facility] [address] [address] [place], [place] [id number] ROBERT OROZCO Self - patient is the insured Medical (General) History Medical History History ICD Code acid reflux Blood transfusion Pneumonia Cancer (type of cancer) hypertension Surgical History Surgery Date(Month/Year) appendectomy Hysterectomy
--- OUTSIDE RECORDS SUMMARY | 2025-03-05 07:34 | XMS_ITS | Clinical Summary ---
Author Organization [facility] Address [address] [place] [address] Care Team Providers Care Orthopaedic Surgeon Name Role Phone Swati Chao MD Primary Care Provider Source Comments [facility],non-owned Affiliates and Associated Physician Practices is amultiple site organization consisting of ambulatory clinics and hospital sitesin [place], [place], [place] and [place]. This disclosure is being madepursuant to the Care Everywhere program and may not contain all information available regarding this patient. Last updated 18.[facility] Allergies No known active allergies Medications * [...] Multiple Vitamin (MULTI-VITAMIN PO) Active nystatin (Mycostatin) 078098 UNIT/GM ointmentIndica tions:Lichen sclerosus Use to vulvar [...] AM CDT Legal Sex Female 8:21 AM TOP CLEANER Gender Identity Female 08/30/2023 9:16 AM CDT Sexual Orientation Straight 08/30/2023 9: 16 AM CDT Last Filed Vital Signs Vital Sign Reading Time Taken Comments Blood Pressure 126/72 07/06/2024 10:02 AM TOP CLEANER Pulse - - Temperature - - Respiratory Rate - - Oxygen Saturation - - Inhaled Oxygen Concentration - - Weight 77.5 kg (170 lb 12.8 oz) 025 10:02 AM TOP CLEANER Height 167.6 cm (5' 6) 07/06/2024 10:0 2 AM TOP CLEANER Body Mass Index 27.57 07/06/2024 10:02 AM TOP CLEANER Plan of Treatment Health Maintenance Due Date [...] patient's age to complete this topic Insurance [facility] MANAGED MEDICARE ADV Care Teams Orthopaedic Surgeon Relationship Specialty Start Date End Date Swati Chao MD [address] [facility] [address] [address] PCP - General Family Medicine 09/06/23
--- NOTE | 2025-03-05 08:20 | EST_ITS ---
Patient Info Name: Kristen Reina Age: 74 years : 1950 Gender: Female Ht: 65 in Wt: 170 lbs BSA: 1.90 m2 HR: 66 bpm BP: 177 / 90 mmHg Exam Date: 03/05/2025 8:20 AM Patient Status: unknown Admit Date: 03/05/2025 Exam Type: CA stress test treadmill w NM A nuclear stress test was performed. Staff Referring Physician: Lizeth Chao Attending Provider: Lizeth Chao Exercise Technologist: Jaqui Mckay Exercise Physician: Michael Amezcua DO Summary 1. 1. Negative Gwyn exercise stress test for ischemic ST changes by ECG criteria. 2. 2. Reduced functional capacity, achieving 4.7 METs of workload. 3. 3. Baseline hypertension with hypertensive response to exercise. 4. 4. Appropriate HR response to exercise. 5. 5. Appropriate HR recovery at 1 minute post exercise. 6. 6. Nuclear scan to follow and will be reported separately. Please correlate with it. 7. 7. Patient informed of the above results. Protocol: Gwyn Stress ECG Details Stage: REST Duration (min): 2 min : 3 sec Speed (mph): 0.0 Grade (%): 0 HR (bpm): 68 SBP (mmHg): 177 DBP (mmHg): 90 METS: --- Stage: REST Duration (min): 5 min : 46 sec Speed (mph): 0.0 Grade (%): 0 HR (bpm): 71 SBP (mmHg): 177 DBP (mmHg): 90 METS: --- Stage: STAGE 1 Duration (min): 1 min : 0 sec Speed (mph): 1.7 Grade (%): 10 HR (bpm): 103 SBP (mmHg): 177 DBP (mmHg): 90 METS: --- Stage: STAGE 1 Duration (min): 2 min : 0 sec Speed (mph): 1.7 Grade (%): 10 HR (bpm): 124 SBP (mmHg): 177 DBP (mmHg): 90 METS: --- Stage: STAGE 1 Duration (min): 3 min : 0 sec Speed (mph): 1.7 Grade (%): 10 HR (bpm): 131 SBP (mmHg): 177 DBP (mmHg): 90 METS: --- Stage: STAGE 2 Duration (min): 0 min : 7 sec Speed (mph): 2.5 Grade (%): 12 HR (bpm): 134 SBP (mmHg): 210 DBP (mmHg): 99 METS: --- Stage: RECOVERY Duration (min): 0 min : 52 sec Speed (mph): 0.0 Grade (%): 0 HR (bpm): 111 SBP (mmHg): 210 DBP (mmHg): 99 METS: --- Stage: RECOVERY Duration (min): 1 min : 52 sec Speed (mph): 0.0 Grade (%): 0 HR (bpm): 86 SBP (mmHg): 210 DBP (mmHg): 99 METS: --- Stage: RECOVERY Duration (min): 2 min : 52 sec Speed (mph): 0.0 Grade (%): 0 HR (bpm): 80 SBP (mmHg): 210 DBP (mmHg): 99 METS: --- Stage: RECOVERY Duration (min): 3 min : 35 sec Speed (mph): 0.0 Grade (%): 0 HR (bpm): 84 SBP (mmHg): 166 DBP (mmHg): 94 METS: --- Rest HR: 71 bpm Peak HR: 131 bpm Rest Sys BP: 177 mmHg Peak Sys BP: 210 mmHg Max Pred HR: 147 bpm % Max Pred HR: 89 % Target HR: 125 bpm Max RPP: 27,510 bpm*mmHg Lim Score: -2 BP Response: Patient exhibited a hypertensive response with stress Termination Reason: Reached target heart rate or workload Cardiac Symptoms: Shortness of breath Max ST Seg Deviation: -1.10 mm Total Time: 3 min : 7 sec Rest Dozier BP: 90 mmHg Peak Dozier BP: 99 mmHg Angina Score: None Total METS: 4.7 Resting ECG Sinus rhythm. Stress ECG No ST changes. Arrhythmias None. Report Signatures
== END 2025-03-05 07:31 | disposition home or self-care (01) ==
PROVIDERS: PCP Family Medicine; Visit Provider Family Medicine
DX: R94.39 Abnormal result of other cardiovascular function study (principal); R06.09 Other forms of dyspnea
CPT/HCPCS: 78452; 93017; A9502

== ENCOUNTER 2025-05-08 09:51 | Outpatient (CLI) | payer MEDICARE, SELFPAY ==
--- NOTE | ~2025-05-08 | US_ITS ---
US retroperitoneal comp 05/08/2025 10:43 Procedure: Realtime transabdominal ultrasound of the kidneys and bladder. Indication: Follow-up renal mass seen on CT. Comparison: CT dated 03/22/2024 Findings: No hydronephrosis. Large right renal cyst measuring 11 cm. There is 1.3 cm hyperechoic left renal mass, consistent with known angiomyolipoma. Mild right hydronephrosis. The right kidney measures 11.4 cm and left kidney measures 12 cm. Bladder within normal limits. Impression: 1: Mild right hydronephrosis. 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 Reviewed, dictated and finalized at location I. SSRS SSIS DEVELOPER Impression: 1: Mild right hydronephrosis. 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
--- OUTSIDE RECORDS SUMMARY | 2025-05-08 10:52 | XMS_ITS | Clinical Summary ---
Author Organization [facility] Address [address] [place] [address] Care Team Providers Care Home Housekeeper Name Role Phone Swati Chao MD Primary Care Provider Source Comments [facility],non-owned Affiliates and Associated Physician Practices is amultiple site organization consisting of ambulatory clinics and hospital sitesin [place], [place], [place] and [place]. This disclosure is being madepursuant to the Care Everywhere program and may not contain all information available regarding this patient. Last updated 18.[facility] Allergies No known active allergies Medications * [...] Multiple Vitamin (MULTI-VITAMIN PO) Active nystatin (Mycostatin) 279121 UNIT/GM ointmentIndica tions:Lichen sclerosus Use to vulvar [...] AM CDT Legal Sex Female 8:21 AM SEASONER Gender Identity Female 08/30/2023 9:16 AM CDT Sexual Orientation Straight 08/30/2023 9: 16 AM CDT Last Filed Vital Signs Vital Sign Reading Time Taken Comments Blood Pressure 126/72 07/06/2024 10:02 AM SEASONER Pulse - - Temperature - - Respiratory Rate - - Oxygen Saturation - - Inhaled Oxygen Concentration - - Weight 77.5 kg (170 lb 12.8 oz) 025 10:02 AM SEASONER Height 167.6 cm (5' 6) 07/06/2024 10:0 2 AM SEASONER Body Mass Index 27.57 07/06/2024 10:02 AM SEASONER Plan of Treatment Health Maintenance Due Date [...] patient's age to complete this topic Insurance [facility] MANAGED MEDICARE ADV Care Teams Home Housekeeper Relationship Specialty Start Date End Date Swati Chao MD [id number] [facility] [address] [address] PCP - General Family Medicine 09/06/23
--- OUTSIDE RECORDS SUMMARY | 2025-05-08 10:52 | XMS_ITS | Patient Health Record ---
Author Organization [facility] Address [address] [place], [place] [id number] Care Team Providers Care Ruby On Rails Developer Name Role Phone Ashley Chaomarianorobert Unavailable Unavaila ble Allergies Allergen (clinical drug ingredient) Drug/Non Drug Allergy documented on EMR Reaction Allergy Type Onset Date Status Substance with sulfonamide structure and antibacterial mechanism of action (substance) Sulfa Antibiotics Unknown Drug Allergy Active Reason For Referral No Information Medications Medication SIG (Take, Route, Frequency, Duration) Notes Start Date End Date Status Omeprazole 40 MG Capsule Delayed Release Oral; Duration: 90 Days A ctive Atorvastatin Calcium 10 MG Tablet TAKE 1 TABLET BY MOUTH AT BEDTIME Oral; Duration: 90 Days Active Dorzolamide HCl-Timolol Mal 22.3-6.8 MG/ML Solution Ophthalmic; Duration: 50 Days Active Losartan Potassium 50 MG Tablet Oral; Duration: 90 Days Acti ve Xifaxan 550 MG Tablet Oral; Duration: 14 Days Active Cholestyramine 4 GM/DOSE Powder Oral; Duration: 42 Days Acti ve Social History Tobacco Use: Social History Observation Description Date Details (start date - stop date) Never Smoker NA - NA Social History Tobacco Use: Social Info Question Answer Notes Tobacco Use/Smoking Tobacco use: nonsmoker Plan Of Treatment No Information Insurance Providers Payer Name Payer Address Payer Phone Subscriber Number Group Number Insured Name Patient Relationship to Insured Coverage Start Date Coverage End Date [facility] [address] [address] [place], [place] [phone] [id number] ROBERT OROZCO Self - patient is the insured Medical (General) History Medical History History ICD Code acid reflux Blood transfusion Pneumonia Cancer (type of cancer) hypertension Surgical History Surgery Date(Month/Year) appendectomy Hysterectomy
== END 2025-05-08 09:52 | disposition home or self-care (01) ==
LOC: CHSIMG 09:52
PROVIDERS: PCP Family Medicine; Visit Provider Urology
DX: D17.71 Benign lipomatous neoplasm of kidney (principal); N13.30 Unspecified hydronephrosis
CPT/HCPCS: 76770